=== PATIENT | female | born 1935 | race Caucasian/White ===

== ENCOUNTER 2016-11-10 16:04 | Inpatient (IN) | payer MEDICARE, OTHER ==
[~2016-11-10 16:04] MED LIST: Dextrose 50% Abboject 50 ML SYRINGE ONE; Sodium Chloride 0.9% 1,000 ML BAG ONE
[2016-11-10 17:00] LABS: Blood, Urine Trace (Negative); Glucose, Urine (Dipstick) Negative (Negative); Leukocyte Negative (Negative); Nitrite Negative (Negative); Protein, Urine (Dipstick) 100 mg/dL (Neg-Trace); Specific Gravity, Urine 1.025 (1.005-1.030); Urobilinogen 0.2 mg/dL (0.2-1.0)
[2016-11-10 17:04] LABS: Bacteria/HPF 4+ HPF (None Seen); Bilirubin Negative (Negative); Clarity Hazy (Clear); Icto Negative (Negative); RBC/HPF 0-3 HPF (0-3); Squamous Epithelial 0-3 HPF (0-3); WBC/HPF 0-3 HPF (0-3)
[2016-11-10 17:34] LABS: INR-International Normal Ratio 1.2; Prothrombin Time 15.4 SEC (12.0-14.7)
[2016-11-10 17:46] LABS: ALT (SGPT) 12 U/L (0-55); AST (SGOT) 17 U/L (5-34); Albumin 2.3 g/dL (3.4-4.8); Alkaline Phosphatase 87 U/L (40-150); Anion Gap 16 mmol/L (10-20); BUN (Urea Nitrogen) 18 mg/dL (9.8-20.1); Bilirubin, Total 0.4 mg/dL (0.2-1.2); CK (CPK) 28 U/L (29-168); CKMB 2.2 ng/mL (0-6.6); CRP (Inflammatory) 18.64 mg/dL (= or < 0.5); Calc. Creatinine Clearance 0 mL/min (70-130); Calcium 9.1 mg/dL (7.8-10.44); Carbon Dioxide 26 mmol/L (23-31); Chloride 98 mmol/L (98-107); Estimated GFR-MDRD 69; Glucose 196 mg/dL (83-110); Potassium 3.8 mmol/L (3.5-5.1); Protein, Total 6.3 g/dL (5.8-8.1); Sodium 136 mmol/L (136-145); Troponin I 0.025 ng/mL (< 0.028)
[2016-11-10] MEDS ORDERED: Ketorolac Tromethamine 30 MG/ML VIAL ONE (17:51)
[2016-11-10] MEDS ORDERED: Ondansetron HCl/PF 4 MG/2 ML Vial ONE (17:51)
[2016-11-10 18:21] LABS: Hemoglobin 9.6 g/dL (12.0-16.0); Mean Corpuscular HGB CONC 31.3 g/dL (32.0-36.0); Mean Corpuscular Hemoglobin 25.7 pg (27.0-31.0); Mean Corpuscular Volume 82.1 fl (81.0-99.0); Mean Platelet Volume 7.1 fL (7.4-10.4); Platelet Count 290 thou/uL (130-400); RBC Distribution Width 17.7 % (11.5-14.5); Red Blood Cell (RBC) Count 3.75 mill/uL (4.20-5.40); White Blood Cell (WBC) Count 9.4 thou/uL (4.8-10.8)
[2016-11-10 18:22] LABS: Anisocytosis SLIGHT = 6-15 cells (100X) (0-5/hpf); Band 10 % (5-11); Eosinophils 1 % (0-10); Lymphocytes 15 % (21-51); MDiff Complete? YES; Monocytes 3 % (0-10); Neutrophil 71 % (42-75); PLT Morphology Comment Appears Adequate; Poikilocytosis SLIGHT = 6-15 cells (100X) (0-5/hpf); Toxic Granulation SLIGHT
--- NOTE | 2016-11-10 18:29 | RAD ---
FRONTAL RADIOGRAPH CHEST 11/10/2016 HISTORY: Weakness. COMPARISON: 08/18/2015 FINDINGS: There is a persistent area of abnormal increased linear density within the medial right upper lobe, evidence of probable medial right apical scar. No pneumothorax SI evident. There are diffuse increased linear interstitial densities seen throughout both lungs as well, most p rominent within the lung bases. There are hazy areas of bibasilar increased density, left greater t hdez right, new when compared to a 08/18/2015. IMPRESSION 1. Diffuse chronic interstitial prominence and stable right upper lobe opacity, suggesting scar. 2. New patchy areas of bibasilar increased density, left greater than right. Findings are suspicio us for bibasilar infectious pneumonitis or aspiration. Asymmetric edema is less likely. Recommend short-term follow-up imaging, following treatment, to document resolution and, thus, exclude an unde rlying lung lesion/nodule. POS: MI
[2016-11-10 21:57] VITALS: BMI 11.9
[2016-11-10] MEDS ORDERED: Acetaminophen 325 MG TAB PO PRN (22:14)
[2016-11-10] MEDS ORDERED: HYDROcodone/Acetaminophen 10/325 mg Tablet PO PRN ×2 (22:14)
[2016-11-10] MEDS ORDERED: Bisacodyl 5 MG TAB PO PRN (22:14)
[2016-11-10] MEDS ORDERED: Ondansetron HCl/PF 4 MG/2 ML Vial SLOW IVP PRN (22:14)
[2016-11-10] MEDS ORDERED: Bisacodyl 10 MG SUPP PR PRN (22:14)
--- NOTE | 2016-11-10 22:23 | ERRECORD ---
[facility] EMERGENCY RECORD HPI WEAK-DIZZY (17:53 LLDO) CHIEF COMPLAINT: Patient presents for evaluation of weakness, Patient presents for evaluation of mental status changes, Patient presents for evaluation of brought in by ems from home. being seen by hospice and home health nurse. pt extremely weak and dehydrated. has an extraordinarily dirty feeding tube. has multiple stage 3 and 4 decubiti (dressings are dark brown to black). HISTORIAN: History provided by patient, History provided by patient's family, Additional history obtained from EMS. LOCATION: Symptoms are generalized. QUALITY: Patient is, oriented to person, responsive to verbal stimuli, Hyndman coma score, Eye opening: (4) - Spontaneous, Verbal: (4) - Confused/disoriented, Motor: (5) - Localizes Pain, GCS Total: 13, Pain is dull in nature, described as aching. SEVERITY: Maximum severity of symptoms moderate, Currently symptoms are moderate. TIME COURSE: Gradual onset of symptoms, Symptoms are worsening, are constant. ASSOCIATED WITH: No associated symptoms, Denies any other complaints, ONLY ABOVE. EXACERBATED BY: Patient's condition exacerbated by nothing. RELIEVED BY: Patient's condition relieved by nothing, Patient's condition relieved by nothing because patient has not tried anything for relief. ROS CONSTITUTIONAL: Historian reports fatigue, reports lethargy, reports malaise, reports weakness. (17:59 LLDO) EYES: Negative eye review of systems, Historian denies eye pain, denies eye redness, denies eye discharge. (18:13 LLDO) ENT: SEE HPI...DRY MOUTH. (17:59 LLDO) CARDIOVASCULAR: Negative cardiovascular review of systems, Historian denies chest pain, no radiation, Historian denies diaphoresis, denies syncope. (18:13 LLDO) RESPIRATORY: Negative respiratory review of systems, Historian denies cough, denies shortness of breath, denies sputum. (18:13 LLDO) GI: dirty feeding tube. (17:59 LLDO) GENITOURINARY FEMALE: Negative genitourinary review of systems, Historian denies dysuria, denies frequency, denies urgency. (18:13 LLDO) MUSCULOSKELETAL: Historian reports arthralgias, reports back pain, reports joint stiffness, reports myalgias. (17:59 LLDO) SKIN: Negative skin review of systems, Historian denies cellulitis, denies rash, denies skin changes, denies skin lesions. (18:13 LLDO) NEUROLOGIC: Negative neurologic review of systems, Historian denies confusion, denies dizziness, denies focal weakness, denies &a-1R&a+25V*p+0X*d8000J*c202B*c15G*c2P*p-0X&a-25V&a+1R Name: Deana Ann : 1935 F81 MedRec: [id number] AcctNum: [id number] Prepared: [facility] Nov 13, 2016 06:19 by Interface Page 1 of 5 pMD [facility] EMERGENCY RECORD mental status changes. (18:13 LLDO) HEMO/LYMPHATIC: Normal hematologic/lymphatic system review, Historian denies abnormal blood clotting, denies gum bleeding, denies petechiae. (18:13 LLDO) ALLERGIC/IMMUNOLOGIC: Normal allergy/immunologic system review, Historian denies eczema, denies environmental allergies, denies food allergies. (18:13 LLDO) PSYCHIATRIC: Negative psychiatric review of systems, Historian denies alcohol abuse, denies anxiety, denies depression, denies drug abuse, denies hallucinations. (18:13 LLDO) NOTES: All systems reviewed, negative except as described above. (17:59 LLDO) PAST MEDICAL HISTORY MEDICAL HISTORY: Notes: VERIFIED WITH EMS 11-10-16, Oral cancer, hypothyroid, dementia, GERD, CAD, HTN. Notes: UNDER CARE AT [facility]. (16:23 JPER) FEMALE SURGICAL HISTORY: Patient's surgical history not available at time of evaluation, Patient has no surgical history. (16:23 JPER) PSYCHIATRIC HISTORY: Psychiatric history includes, anxiety. (16:23 JPER) SOCIAL HISTORY: Patient denies alcohol use, Patient denies drug use, Patient has no smoking history, Lives at home, with family, LIVES WITH HER SISTER WHO CAN WATCH HER AND HELP HER FOR NEXT COUPLE OF DAYS. (16:23 JPER) NOTES: Nursing records reviewed, Agree with nursing records, Medication list reviewed. (18:13 LLDO) KNOWN ALLERGIES Flagyl metronidazole (Unconfirmed) CURRENT MEDICATIONS (16:24 JPER) ALPRAZolam: TABLET : Strength - 0.25 mg : ORAL Patient Dose: .5 mg Oral 3 times a day. Coreg: TABLET : Strength - 6.25 mg : ORAL Patient Dose: 12.5 mg Oral once a day. levothyroxine: TABLET : Strength - 25 mcg : ORAL Patient Dose: 1 tab(s) Oral once a day (in the morning). hydrocortisone: TABLET : Strength - 10 mg : ORAL Patient Dose: 1.5 tab(s) Oral 2 times a day.PM DOSE 0.5 TAB. HYDROcodone-acetaminophen: TABLET : Strength - 10 mg-325 mg : ORAL Patient Dose: 1 tab(s) Oral As Needed.Q 6 HR PAIN. &a-1R&a+25V*p+0X*[id number]*c202B*c15G*c2P*p-0X&a-25V&a+1R Name: Deana Ann : 1935 F81 MedRec: [id number] AcctNum: [id number] Prepared: [facility] Nov 13, 2016 06:19 by Interface Page 2 of 5 pMD [facility] EMERGENCY RECORD QUEtiapine: TABLET : Strength - 25 mg : ORAL Patient Dose: 2 tab(s) Oral once a day (at bedtime). pantoprazole: TABLET, DELAYED RELEASE (ENTERIC COATED) : Strength - 40 mg : ORAL Patient Dose: 1 mg Oral once a day (in the morning). VITAL SIGNS VITAL SIGNS: BP: 147/42, Pulse: 94, Resp: 20, O2 sat: 97 on 2L Oxygen, Time: 11/10/2016 16:22. (16:22 JPER) BP: 139/64, Pulse: 97, Resp: 21, Temp: 97.7 (Tympanic), O2 sat: 97 on 2L Oxygen, Time: 11/10/2016 16:30. (16:30 JPER) BP: 133/65, Pulse: 91, Resp: 15, Temp: 97.7 (Tympanic), O2 sat: 98 on Room Air, Time: 11/10/2016 17:00. (17:00 JPER) BP: 124/53, Pulse: 85, Resp: 14, O2 sat: 100 on 2L Oxygen, Time: 11/10/2016 17:30. (17:30 JPER) BP: 134/50, Pulse: 80, Resp: 14, Temp: 97.7 (Tympanic), O2 sat: 100 on 2L Oxygen, Time: 11/10/2016 18:00. (18:00 JPER) BP: 108/55, Pulse: 78, Resp: 13, O2 sat: 100 on 2L Oxygen, Time: 11/10/2016 18:27. (18:27 JPER) BP: 102/49, Pulse: 78, Resp: 16, O2 sat: 100 on 2L Oxygen, Time: 11/10/2016 20:25. (20:25 LPOL) PHYSICAL EXAM CONSTITUTIONAL: Vital signs reviewed, Patient afebrile, Pulse normal, Blood pressure normal, Respiratory rate normal, Patient appears, uncomfortable, Patient appears in pain, Patient alert and oriented to person, place and time. (18:02 LLDO) cachectic. disoriented. (18:10 LLDO) HEAD: Head exam included findings of head atraumatic, normocephalic. (18:10 LLDO) EYES: Eye exam normal, Eye exam included findings of eyelids normal to inspection, Pupils equally round and reactive to light, Extraocular muscles intact. (18:13 LLDO) ENT: Pharynx, Uvula exam normal, Mouth exam included findings of, mucous membranes dry, mucous membranes cracked, mucous membranes tacky, Sinus exam included findings of frontal sinuses normal, maxillary sinuses normal. (18:02 LLDO) NECK: Neck exam included findings of normal range of motion, Trachea midline, Thyroid, no meningeal signs, no cervical adenopathy. (18:02 LLDO) RESPIRATORY CHEST: Respiratory exam included findings of no respiratory distress. (18:02 LLDO) Respiratory exam included findings of no respiratory distress, Rales present, Breath sounds diminished, Chest exam included findings of chest movement symmetrical, Chest expansion equal, RALES MOD AND DIFFUSE. (18:10 LLDO) CARDIOVASCULAR: Cardiovascular assessment normal, Cardiovascular &a-1R&a+25V*p+0X*n7365S*c202B*c15G*c2P*p-0X&a-25V&a+1R Name: Deana Ann : 1935 F81 MedRec: [id number] AcctNum: [id number] Prepared: Shira Nov 13, 2016 06:19 by Interface Page 3 of 5 pMD [facility] EMERGENCY RECORD exam included findings of heart rate regular rate and rhythm, Heart sounds normal. (18:13 LLDO) ABDOMEN FEMALE: Abdominal exam normal, Abdominal exam included findings of abdomen nontender, Bowel sounds normal, no peritoneal signs. (18:13 LLDO) BACK: Back exam normal, Back exam included findings of normal inspection, range of motion normal. (18:13 LLDO) UPPER EXTREMITY: Upper extremity exam normal, Upper extremity exam included findings of inspection normal, Range of motion normal. (18:13 LLDO) LOWER EXTREMITY: Lower extremity exam normal, Lower extremity exam included findings of inspection normal, Range of motion normal. (18:13 LLDO) NEURO: Latanya coma scale, Eye opening: (4) - Spontaneous, Verbal: (4) - Confused/disoriented, Motor: (5) - Localizes Pain, GCS Total: 13, Neuro exam findings include patient oriented to, person, Speech, slurred, Gait abnormal, unable to ambulate, Memory abnormal, Cranial nerves intact, Deep tendon reflexes normal, no focal motor deficits, no focal sensory deficits, no cerebellar deficits, no nystagmus. (18:10 LLDO) SKIN: Skin exam included findings of skin warm, dry, and normal in color, multiple decubiti. (18:10 LLDO) PSYCHIATRIC: Psychiatric exam normal, Psychiatric exam included findings of patient oriented to person place and time, Normal affect. (18:13 LLDO) MEDICATION ADMINISTRATION SUMMARY Drug Name: Zofran intravenous, Dose Ordered: 4 mg, Route: IV Push, Status: Given, Time: 17:51 11/10/2016, Drug Name: Toradol intravenous, Dose Ordered: 15 mg, Route: IV Push, Status: Given, Time: 17:50 11/10/2016, Drug Name: *sodium chloride 0.9 % intravenous, Dose Ordered: 1 L, Route: IV Fluid Infusion, Status: Given, Time: 17:48 11/10/2016, Drug Name: *dextrose 50 % in water (D50W), Dose Ordered: 1 amp(s), Route: IV Push, Status: Given, Time: 16:30 11/10/2016, *Additional information available in notes, Detailed record available in Medication Service section. DOCTOR NOTES (18:16 LLDO) TEXT: talked to dr. wiggins, pcp, who will admit here for palliation. sister (caregiver) agrees. PROBLEM LIST No recorded problems DIAGNOSIS (20:57 LLDO) FINAL: PRIMARY: MUSCLE WEAKNESS GENERALIZED, &a-1R&a+25V*p+0X*j2418P*c202B*c15G*c2P*p-0X&a-25V&a+1R Name: Deana Ann : 1935 F81 MedRec: [id number] AcctNum: [id number] Prepared: ThuNov 13, 2016 06:19 by Interface Page 4 of 5 pMD [facility] EMERGENCY RECORD ADDITIONAL: decubiti, multiple, DEHYDRATION. PRESCRIPTION No recorded prescriptions DISPOSITION PATIENT: Disposition Type: Admit, Disposition: [facility]. (20:57 LLDO) Patient left the department. (21:28 LPOL) Small: JPER=DAFNE Ziegler, [place] LLDO=MD Maddy, Iker LPOL=DAFNE Alcocer, Roula &a-1R&a+25V*p+0X*v0896X*c202B*c15G*c2P*p-0X&a-25V&a+1R Name: Deana Ann : 1935 F81 MedRec: [id number] AcctNum: [id number] Prepared: Shira Nov 13, 2016 06:19 by Interface Page 5 of 5 pMD MTDD
--- NOTE | 2016-11-10 22:29 | PICIS ---
[facility] EMERGENCY RECORD COMMUNICATIONS (20:00 ADEA) COMMUNICATIONS: Admissions department, Contacted to admit the patient, Med Surg room 417. TRIAGE (16:23 JPER) PATIENT: NAME: Deana Ann, AGE: 81, GENDER: female, : Thu1935, TIME OF GREET: ThuNov 10, 2016 16:05, PREFERRED LANGUAGE: Chinese, RACE: WHITE, ETHNICITY: Not or , FALL RISK: YES, ECODE BILLING MAP: [facility], SSN: [id number], Zip Code: [address], KG WEIGHT: 38.56 (est.), PHONE: , , , PERSON ID: [id number], PCP: MD Lofton Grover. (16:23 JPER) COMPLAINT: WEAKNESS. (16:23 JPER) ADMISSION: URGENCY: 3 Urgent, ADMISSION SOURCE: Home, TRANSPORT: AMBULANCE - [facility], BED: ED -02. (16:23 JPER) ASSESSMENT: Assessment: WEAKNESS / DECREASED ORAL INTAKE. (16:23 JPER) SIRS SCORING: Heart Rate 55-109 (0), Temp range 96.8-101.1 (0), respiratory rate 25-34 (1), Total SIRS Score 1. (16:23 JPER) TRIAGE SCREENING: Patient denies suicidal ideation, Patient denies presence of domestic violence. (16:23 JPER) TREATMENTS IN PROGRESS: Saline Lock, Site: [facility], Gauge: 20. (16:23 JPER) PROVIDERS: TRIAGE NURSE: [place] Ziegler RN. (16:23 JPER) VITAL SIGNS: BP 147/42, Pulse 94, Resp 20, O2 Sat 97, on 2L Oxygen, Time 11/10/2016 16:22. (16:22 JPER) PREVIOUS VISIT ALLERGIES: Flagyl. (16:23 JPER) KNOWN ALLERGIES Flagyl metronidazole (Unconfirmed) CURRENT MEDICATIONS (16:24 JPER) ALPRAZolam: TABLET : Strength - 0.25 mg : ORAL Patient Dose: .5 mg Oral 3 times a day. Coreg: TABLET : Strength - 6.25 mg : ORAL Patient Dose: 12.5 mg Oral once a day. levothyroxine: TABLET : Strength - 25 mcg : ORAL Patient Dose: 1 tab(s) Oral once a day (in the morning). hydrocortisone: TABLET : Strength - 10 mg : ORAL Patient Dose: 1.5 tab(s) Oral 2 times a day.PM DOSE 0.5 TAB. HYDROcodone-acetaminophen: TABLET : Strength - 10 mg-325 mg : ORAL &a-1R&a+25V*p+0X*h6421N*c202B*c15G*c2P*p-0X&a-25V&a+1R Name: Deana Ann : 1935 F81 MedRec: [id number] AcctNum: [id number] Prepared: [facility] Nov 13, 2016 06:24 by Interface Page 1 of 12 pMD [facility] EMERGENCY RECORD Patient Dose: 1 tab(s) Oral As Needed.Q 6 HR PAIN. QUEtiapine: TABLET : Strength - 25 mg : ORAL Patient Dose: 2 tab(s) Oral once a day (at bedtime). pantoprazole: TABLET, DELAYED RELEASE (ENTERIC COATED) : Strength - 40 mg : ORAL Patient Dose: 1 mg Oral once a day (in the morning). VITAL SIGNS VITAL SIGNS: BP: 147/42, Pulse: 94, Resp: 20, O2 sat: 97 on 2L Oxygen, Time: 11/10/2016 16:22. (16:22 JPER) BP: 139/64, Pulse: 97, Resp: 21, Temp: 97.7 (Tympanic), O2 sat: 97 on 2L Oxygen, Time: 11/10/2016 16:30. (16:30 JPER) BP: 133/65, Pulse: 91, Resp: 15, Temp: 97.7 (Tympanic), O2 sat: 98 on Room Air, Time: 11/10/2016 17:00. (17:00 JPER) BP: 124/53, Pulse: 85, Resp: 14, O2 sat: 100 on 2L Oxygen, Time: 11/10/2016 17:30. (17:30 JPER) BP: 134/50, Pulse: 80, Resp: 14, Temp: 97.7 (Tympanic), O2 sat: 100 on 2L Oxygen, Time: 11/10/2016 18:00. (18:00 JPER) BP: 108/55, Pulse: 78, Resp: 13, O2 sat: 100 on 2L Oxygen, Time: 11/10/2016 18:27. (18:27 JPER) BP: 102/49, Pulse: 78, Resp: 16, O2 sat: 100 on 2L Oxygen, Time: 11/10/2016 20:25. (20:25 LPOL) NURSING ASSESSMENT: HEAD-TO-TOE (16:30 JPER) CONSTITUTIONAL: Patient arrives, via [facility], Unsteady gait, Lift to cart, History obtained from, [facility], Patient appears comfortable, Patient cooperative, Patient, responsive to verbal stimuli, Patient is, oriented to person, Skin warm, Skin dry, Skin, pale in color, Mucous membranes, PT HAS ORAL CANCER AND ORAL CAVITY IS REDDENED, CRACKED IN PLACES AND BLEEDING, Mucous membranes, dry, Patient, poorly groomed, with poor personal hygiene, PT IS DIRTY AND UNKEMPT; HAS DIRT TO COLLARBONE AREA; FINGERNAILS ARE BLACK WITH DEBRIS; EYES HAVE MATTER AND ARE CRUSTED SOMEWHAT; FEEDING TUBE HAS EXUDATE AROUND INSERTION SITE AND THE TUBE ITSELF IS BLACK, Patient complains of WEAKNESS. PAIN: PT DENIES PAIN. 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, Stage IV, length (cm) 4-5, width (cm) 2-3, draining yellow fluid, LEFT HIP, Inspection findings include pressure ulcer to the sacrum, Stage III, length (cm) 1.5, width (cm) 1.5, draining yellow fluid, Inspection &a-1R&a+25V*p+0X*t8028F*c202B*c15G*c2P*p-0X&a-25V&a+1R Name: Deana Ann : 1935 F81 MedRec: [id number] AcctNum: [id number] Prepared: Shira Nov 13, 2016 06:24 by Interface Page 2 of 12 pMD [facility] EMERGENCY RECORD findings include pressure ulcer, to RIGHT HIP, Stage IV, length (cm) 1.5, width (cm) 1.5, draining green fluid, PT HAS #2 SIMILAR WOUNDS TO RIGHT HIP; SUSPECT WOUND HAS TUNNELED. NEURO: Able to close eyes, Speech, slurred, DUE TO ORAL CA, GCS:, Eye opening: (4) - Spontaneous, Verbal: (4) - Confused/disoriented, Motor: (6) - Obeys commands/Spontaneous, Hand grasps equal, Foot press equal, Associated with weakness. EYES: Notes: SOME ACCUMULATION OF MATTERING NOTED. ENT: Able to swallow. NECK: Neck assessment findings include trachea midline. BACK: Right radial pulse +3(easily palpated, considered normal), Left radial pulse +3(easily palpated, considered normal), Notes: PT HAS NOTED CURVATURE OF THE SPINE. RESPIRATORY/CHEST: Breath sounds clear, Respiratory assessment findings include respiratory effort easy, Respirations regular, Conversing normally, Neck and chest exam findings include trachea midline, Chest expansion equal, Chest movement symmetrical, Notes: PLACED ON O2 AT 2L/MIN NC FOR ROOM AIR SATS OF 90%. CARDIOVASCULAR: Cardiovascular assessment findings include heart rate normal, Left radial pulse +3(easily palpated, considered normal), Right radial pulse +3(easily palpated, considered normal). ABDOMEN: Abdomen, firm. GENITOURINARY FEMALE: Female genitourinary assessment findings include external genitalia normal. LEFT UPPER EXTREMITY: Left upper extremity assessment findings include capillary refill greater than 2 seconds, Skin color normal to hand, Skin temperature to hand warm, Distal sensation intact, Muscle tone normal. RIGHT UPPER EXTREMITY: Right upper extremity assessment findings include capillary refill greater than 2 seconds, Skin color normal to hand, Skin temperature to hand warm, Distal sensation intact, Muscle tone normal. LEFT LOWER EXTREMITY: Left lower extremity assessment findings include capillary refill greater than 2 seconds, Skin color normal, Skin temperature warm, Distal sensation intact, Muscle tone normal. RIGHT LOWER EXTREMITY: Right lower extremity assessment findings include capillary refill greater than 2 seconds, Skin color normal, Skin temperature warm, Distal sensation intact, Muscle tone normal. PSYCH/SOCIAL: Psychiatric/social assessment findings include affect, PT RESPONDS FAIRLY WELL AND APPROPRIATELY IN CONVERSATION; POOR EYE CONTACT IF SHE DOES NOT SEE WELL; PT IS SOMEWHAT HARD OF HEARING AND HAS SOME SLURRED SPEECH DUE TO THE ORAL CANCER BUT IS INTELLIGIBLE AND ESSENTIALLY APPROPRIATE. NOTES: Emotional support needed and given, Patient tolerated procedure with difficulty. SAFETY: Side rails up, Cart/Stretcher in lowest position, Call &a-1R&a+25V*p+0X*e1835F*c202B*c15G*c2P*p-0X&a-25V&a+1R Name: Deana Ann : 1935 F81 MedRec: [id number] AcctNum: [id number] Prepared: Shira Nov 13, 2016 06:24 by Interface Page 3 of 12 pMD [facility] EMERGENCY RECORD light within reach, Hospital ID band on. NURSING PROCEDURE: ADMISSION (20:08 LPOL) ADMISSION: Patient admitted to a medical-surgical unit, Report called to, Janell, Provided opportunity to answer questions, Report called at 2004, Patient Admited at. [facility], Acuity level urgent, Transported via cart/stretcher, Accompanied by registered nurse, Transported with saline lock, Summary of Care printed. BELONGINGS: Belongings and valuables with patient upon arrival to the Emergency Department include:, Belongings remain with patient, Valuables remain with patient. SAFETY: Side rails up, Cart/Stretcher in lowest position, Family at bedside, Hospital ID band on. NURSING PROCEDURE: BEDSIDE TESTING (16:30 JPER) GLUCOSE: Glucose testing indicated for WEAKNESS, Capillary blood sample, Result (mg/dl) 61, Machine number ED. FOLLOW-UP: After procedure, results given to Dr. ANGUIANO, Notes: ORDERS GIVEN FOR 1 AMP D50 IVP. NURSING PROCEDURE: EKG CHART (17:20 JPER) PATIENT IDENTIFIER: Patient's identity verified by patient stating name, Patient's identity verified by hospital ID bracelet. EK lead EKG performed on the left chest, done by ERIK GOLDSMITH. FOLLOW-UP: After procedure, EKG for interpretation given to Dr. ANGUIANO. NOTES: Emotional support needed and given. NURSING PROCEDURE: INTAKE AND OUTPUT (19:32 LPOL) INTAKE AND OUTPUT: Total Intake (ml): 0ml, Urine output(ml): 240, Total Output (ml): 240ml, Grand Total: Output is greater than intake by 240mls. NURSING PROCEDURE: NURSE NOTES NURSES NOTES: Notes: CONSENT TO PHOTOGRAPH OBTAINED FROM PT WITH ERMD AT BEDSIDE. (17:40 JPER) Notes: PT TO BE ADMITTED TO THE SERVICE OF DR LOFTON. (18:29 JPER) Shift change report given, to lpfroylan rn, Provided opportunity to answer questions. (19:10 JPER) NURSING PROCEDURE: URINE COLLECTION (16:45 JPER) PATIENT IDENTIFIER: Patient's identity verified by patient stating name. URINE COLLECTION FEMALE: Simple de jesus inserted, using a 16 fr pre-connected catheter, in one attempt, urine karl in color, Specimen labeled in the presence of the patient and sent to lab, Specimen obtained for culture labeled in the presence of the patient and sent to lab. NOTES: Emotional support needed and given, Patient tolerated &a-1R&a+25V*p+0X*a6394T*c202B*c15G*c2P*p-0X&a-25V&a+1R Name: Deana Ann : 1935 F81 MedRec: [id number] AcctNum: [id number] Prepared: [facility] Nov 13, 2016 06:24 by Interface Page 4 of 12 pMD [facility] EMERGENCY RECORD procedure well. ORDER DETAILS Order Name: B type Natriuretic Peptide, Status: Active, Time: 16:37 11/10/2016, User: VENTURA, - Ordered for: MD Anguiano Lloyd, - Entered by: MD Anguiano Lloyd - ThuNov 10, 2016 16:37, - Quantity: 1, Order Name: DIRECTOR OF CASINO ED, Status: Done, Time: 16:42 11/10/2016, User: RADHA, - Ordered for: MD Anguiano Lloyd, - Entered by: MD Anguiano Lloyd - ThuNov 10, 2016 16:38, - Quantity: 1, Order Name: Cardiac Profile w/CKMB & Troponin - I, Status: Active, Time: 16:38 11/10/2016, User: VENTURA, - Ordered for: MD Anguiano Lloyd, - Entered by: MD Anguiano Lloyd - ThuNov 10, 2016 16:38, - Quantity: 1, Order Name: CBC with Differential, Status: Active, Time: 16:37 11/10/2016, User: VENTURA, - Ordered for: MD Anguiano Lloyd, - Entered by: MD Anguiano Lloyd - ThuNov 10, 2016 16:37, - Quantity: 1, Order Name: CK (CPK), Status: Active, Time: 16:38 11/10/2016, User: VENTURA, - Ordered for: MD Anguiano Lloyd, - Entered by: MD Anguiano Lloyd - [facility] Nov 10, 2016 16:38, - Quantity: 1, Order Name: Comprehensive Metabolic Panel, Status: Active, Time: 16:37 11/10/2016, User: VENTURA, - Ordered for: MD Anguiano Lloyd, - Entered by: MD Anguiano Lloyd - [facility] Nov 10, 2016 16:37, - Quantity: 1, Order Name: CRP (Inflamatory), Status: Active, Time: 16:37 11/10/2016, User: VENTURA, - Ordered for: MD Anguiano Lloyd, - Entered by: MD Anguiano Lloyd - [facility] Nov 10, 2016 16:37, - Quantity: 1, Order Name: Culture & GS, Bacterial/Wound, Status: Active, Time: 17:05 11/10/2016, User: RADHA, - Ordered for: MD Anguiano Lloyd, - Entered by: DAFNE Ziegler, [place] - ThuNov 10, 2016 17:05, - Quantity: 1, Order Name: Culture & GS, Bacterial/Wound, Status: Active, Time: 16:39 11/10/2016, User: VENTURA, - Ordered for: MD Anguiano Lloyd, - Entered by: MD Anguiano Lloyd - [facility] Nov 10, 2016 16:39, - Quantity: 1, Order Name: Culture & GS, Bacterial/Wound, Status: Active, Time: &a-1R&a+25V*p+0X*r6481U*c202B*c15G*c2P*p-0X&a-25V&a+1R Name: Deana Ann : 1935 F81 MedRec: [id number] AcctNum: [id number] Prepared: Shira Nov 13, 2016 06:24 by Interface Page 5 of 12 D [facility] EMERGENCY RECORD 17:06 11/10/2016, User: RADHA, - Ordered for: MD Anguiano Lloyd, - Entered by: DAFNE Ziegler, ThuNov 10, 2016 17:06, - Quantity: 1, Order Name: Culture, Blood, Status: Active, Time: 16:37 11/10/2016, User: LLDO, - Ordered for: MD Anguiano Lloyd, - Entered by: MD Anguiano Lloyd - [facility] Nov 10, 2016 16:37, - Quantity: 1, Order Name: Culture, Urine, Status: Active, Time: 16:37 11/10/2016, User: LLDO, - Ordered for: MD Anguiano Lloyd, - Entered by: MD Anguiano Lloyd - [facility] Nov 10, 2016 16:37, - Quantity: 1, Order Name: EKG 12 Lead in Emergency Room, Status: Active, Time: 16:38 11/10/2016, User: LLDO, - Ordered for: MD Anguiano Lloyd, - Entered by: MD Anguiano Lloyd - [facility] Nov 10, 2016 16:38, - Quantity: 1, Order Name: ERRT Oxygen Usage ER, Status: Active, Time: 16:38 11/10/2016, User: LLDO, - Ordered for: MD Anguiano Lloyd, - Entered by: MD Anguiano Lloyd - [facility] Nov 10, 2016 16:38, - Quantity: 1, Order Name: ERRT Pulse Oximeter ER, Status: Active, Time: 16:38 11/10/2016, User: LLDO, - Ordered for: MD Anguiano Lloyd, - Entered by: MD Anguiano Lloyd - [facility] Nov 10, 2016 16:38, - Quantity: 1, Order Name: DE JESUS CATHETER ED, Status: Done, Time: 16:42 11/10/2016, User: JPER, - Ordered for: MD Anguiano Lloyd, - Entered by: MD Anguiano Lloyd - [facility] Nov 10, 2016 16:39, - Quantity: 1, Order Name: Lactic Acid with repeat, Status: Active, Time: 16:37 11/10/2016, User: LLDO, - Ordered for: MD Anguiano Lloyd, - Entered by: MD Anguiano Lloyd - [facility] Nov 10, 2016 16:37, - Quantity: 1, Order Name: Protime with INR, Status: Active, Time: 16:38 11/10/2016, User: LLDO, - Ordered for: MD Anguiano Lloyd, - Entered by: MD Anguiano Lloyd - [facility] Nov 10, 2016 16:38, - Quantity: 1, Order Name: PTT, Status: Active, Time: 16:38 11/10/2016, User: VENTURA, - Ordered for: MD Anguiano Lloyd, - Entered by: MD Anguiano Lloyd - [facility] Nov 10, 2016 16:38, - Quantity: 1, Order Name: SALINE LOCK, Status: Done, Time: 16:43 11/10/2016, User: RADHA, &a-1R&a+25V*p+0X*n3050A*c202B*c15G*c2P*p-0X&a-25V&a+1R Name: Deana Ann : 1935 F81 MedRec: [id number] AcctNum: [id number] Prepared: [facility] Nov 13, 2016 06:24 by Interface Page 6 of 12 [facility] EMERGENCY RECORD - Ordered for: MD Anguiano Lloyd, - Entered by: MD Anguiano Lloyd - [facility] Nov 10, 2016 16:38, - Quantity: 1, Order Name: Urinalysis with Microscopic, Status: Active, Time: 16:37 11/10/2016, User: VENTURA, - Ordered for: MD Anguiano Lloyd, - Entered by: MD Anguiano Lloyd - [facility] Nov 10, 2016 16:37, - Quantity: 1, Order Name: XR Chest 1 View Portable, Status: Active, Time: 16:38 11/10/2016, User: VENTURA, - Ordered for: MD Anguiano Lloyd, - Entered by: MD Anguiano Lloyd - [facility] Nov 10, 2016 16:38, - Quantity: 1. MEDICATION ADMINISTRATION SUMMARY Drug Name: Zofran intravenous, Dose Ordered: 4 mg, Route: IV Push, Status: Given, Time: 17:51 11/10/2016, Drug Name: Toradol intravenous, Dose Ordered: 15 mg, Route: IV Push, Status: Given, Time: 17:50 11/10/2016, Drug Name: *sodium chloride 0.9 % intravenous, Dose Ordered: 1 L, Route: IV Fluid Infusion, Status: Given, Time: 17:48 11/10/2016, Drug Name: *dextrose 50 % in water (D50W), Dose Ordered: 1 amp(s), Route: IV Push, Status: Given, Time: 16:30 11/10/2016, *Additional information available in notes, Detailed record available in Medication Service section. MEDICATION SERVICE dextrose 50 % in water (D50W): Order: dextrose 50 % in water (D50W) (dextrose 50 % in water) - Dose: 1 amp(s) : IV Push Schedule: Now Notes: late entry for 11-10-16 @[address] [facility] [address] anguiano Ordered by: Iker Anguiano MD Entered by: [place] Ziegler RN zion Nov 11, 2016 07:34 Documented as given by: [place] iZegler RN [facility] Nov 10, 2016 16:30 Patient, Medication, Dose, Route and Time verified prior to administration. Verbal order read back and verified, Amount given: 1 amp, IV SITE #1 IVP, initial medication, Slowly, Catheter placement confirmed via flush prior to administration, IV site without signs or symptoms of infiltration during medication administration, No swelling during administration, No drainage during administration, IV flushed after administration, Correct patient, time, route, dose and medication confirmed prior to administration, Patient advised of actions and side-effects prior to administration, Allergies confirmed and medications reviewed prior to administration, Administered by erik goldsmith, Patient in position of comfort, Side rails up, Cart in lowest position, Family at bedside, late entry. sodium chloride 0.9 % intravenous: Order: sodium chloride 0.9 % intravenous (0.9 % sodium chloride) - Dose: 1 L : IV Fluid &a-1R&a+25V*p+0X*l6425N*c202B*c15G*c2P*p-0X&a-25V&a+1R Name: Deana Ann : 1935 F81 MedRec: [id number] AcctNum: [id number] Prepared: [facility] Nov 13, 2016 06:24 by Interface Page 7 of 12 pMD [facility] EMERGENCY RECORD Infusion Notes: (Bolus) after bolus, lock Ordered by: Iker Anguiano MD Entered by: Iker Anguiano MD ThuNov 10, 2016 17:47 Documented as given by: [place] Ziegler RN ThuNov 10, 2016 17:48 Patient, Medication, Dose, Route and Time verified prior to administration. Amount given: 1000ML, IV SITE #1 IV fluids established for hydration, IV SITE #1 into left forearm, IV SITE #1 1st bag hung, amount 1 Liter hung, IV SITE #1 bolus of 1000 ml established, IV SITE #1 Rate of bolus, 1000 ml/hr, via primary tubing, Catheter placement confirmed via flush prior to administration, IV site without signs or symptoms of infiltration during medication administration, No swelling during administration, No drainage during administration, IV flushed after administration, Correct patient, time, route, dose and medication confirmed prior to administration, Patient advised of actions and side-effects prior to administration, Allergies confirmed and medications reviewed prior to administration, Administered by ERIK GOLDSMITH, Patient in position of comfort, Side rails up, Cart in lowest position, Family at bedside. : Follow Up : _IV SITE #1:_, IV fluid infusion discontinued, on ThuNov 10, 2016 19:00, Total fluid hydration time IV site 1 1 hour, 15 minutes, ., Total amount infused: 1000ml. (19:09 JPREJI) Toradol intravenous: Order: Toradol intravenous (ketorolac tromethamine) - Dose: 15 mg : IV Push Schedule: Now Ordered by: Iker Anguiano MD Entered by: Iker Anguiano MD ThuNov 10, 2016 17:48 Documented as given by: [place] Ziegler RN ThuNov 10, 2016 17:50 Patient, Medication, Dose, Route and Time verified prior to administration. Amount given: 15MG, IV SITE #1 IVP, initial medication, Slowly, Catheter placement confirmed via flush prior to administration, IV site without signs or symptoms of infiltration during medication administration, No swelling during administration, No drainage during administration, IV flushed after administration, Correct patient, time, route, dose and medication confirmed prior to administration, Patient advised of actions and side-effects prior to administration, Allergies confirmed and medications reviewed prior to administration, Administered by ERIK GOLDSMITH. Zofran intravenous: Order: Zofran intravenous (ondansetron HCl) - Dose: 4 mg : IV Push Schedule: Now Ordered by: Iker Anguiano MD Entered by: Iker Anguiano MD ThuNov 10, 2016 17:48 Documented as given by: [place] Ziegler RN ThuNov 10, 2016 17:51 Patient, Medication, Dose, Route and Time verified prior to administration. Amount given: 4MG, IV SITE #1 IVP, subsequent different medication, Slowly, Catheter placement confirmed via flush prior to &a-1R&a+25V*p+0X*p8569G*c202B*c15G*c2P*p-0X&a-25V&a+1R Name: Deana Ann : 1935 F81 MedRec: [id number] AcctNum: [id number] Prepared: [facility] Nov 13, 2016 06:24 by Interface Page 8 of 12 pMD [facility] EMERGENCY RECORD administration, IV site without signs or symptoms of infiltration during medication administration, No swelling during administration, No drainage during administration, IV flushed after administration, Correct patient, time, route, dose and medication confirmed prior to administration, Patient advised of actions and side-effects prior to administration, Allergies confirmed and medications reviewed prior to administration, Administered by ERIK GOLDSMITH. HPI WEAK-DIZZY (17:53 LLDO) CHIEF COMPLAINT: Patient presents for evaluation of weakness, Patient presents for evaluation of mental status changes, Patient presents for evaluation of brought in by ems from home. being seen by hospice and home health nurse. pt extremely weak and dehydrated. has an extraordinarily dirty feeding tube. has multiple stage 3 and 4 decubiti (dressings are dark brown to black). HISTORIAN: History provided by patient, History provided by patient's family, Additional history obtained from EMS. LOCATION: Symptoms are generalized. QUALITY: Patient is, oriented to person, responsive to verbal stimuli, [place] coma score, Eye opening: (4) - Spontaneous, Verbal: (4) - Confused/disoriented, Motor: (5) - Localizes Pain, GCS Total: 13, Pain is dull in nature, described as aching. SEVERITY: Maximum severity of symptoms moderate, Currently symptoms are moderate. TIME COURSE: Gradual onset of symptoms, Symptoms are worsening, are constant. ASSOCIATED WITH: No associated symptoms, Denies any other complaints, ONLY ABOVE. EXACERBATED BY: Patient's condition exacerbated by nothing. RELIEVED BY: Patient's condition relieved by nothing, Patient's condition relieved by nothing because patient has not tried anything for relief. ROS CONSTITUTIONAL: Historian reports fatigue, reports lethargy, reports malaise, reports weakness. (17:59 LLDO) EYES: Negative eye review of systems, Historian denies eye pain, denies eye redness, denies eye discharge. (18:13 LLDO) ENT: SEE HPI...DRY MOUTH. (17:59 LLDO) CARDIOVASCULAR: Negative cardiovascular review of systems, Historian denies chest pain, no radiation, Historian denies diaphoresis, denies syncope. (18:13 LLDO) RESPIRATORY: Negative respiratory review of systems, Historian denies cough, denies shortness of breath, denies sputum. (18:13 LLDO) GI: dirty feeding tube. (17:59 LLDO) GENITOURINARY FEMALE: Negative genitourinary review of systems, Historian denies dysuria, denies frequency, denies urgency. (18:13 LLDO) &a-1R&a+25V*p+0X*w9069N*c202B*c15G*c2P*p-0X&a-25V&a+1R Name: Deana Ann : 1935 F81 MedRec: [id number] AcctNum: [id number] Prepared: Shira Nov 13, 2016 06:24 by Interface Page 9 of 12 pMD [facility] EMERGENCY RECORD MUSCULOSKELETAL: Historian reports arthralgias, reports back pain, reports joint stiffness, reports myalgias. (17:59 LLDO) SKIN: Negative skin review of systems, Historian denies cellulitis, denies rash, denies skin changes, denies skin lesions. (18:13 LLDO) NEUROLOGIC: Negative neurologic review of systems, Historian denies confusion, denies dizziness, denies focal weakness, denies mental status changes. (18:13 LLDO) HEMO/LYMPHATIC: Normal hematologic/lymphatic system review, Historian denies abnormal blood clotting, denies gum bleeding, denies petechiae. (18:13 LLDO) ALLERGIC/IMMUNOLOGIC: Normal allergy/immunologic system review, Historian denies eczema, denies environmental allergies, denies food allergies. (18:13 LLDO) PSYCHIATRIC: Negative psychiatric review of systems, Historian denies alcohol abuse, denies anxiety, denies depression, denies drug abuse, denies hallucinations. (18:13 LLDO) NOTES: All systems reviewed, negative except as described above. (17:59 LLDO) PAST MEDICAL HISTORY MEDICAL HISTORY: Notes: VERIFIED WITH EMS 11-10-16, Oral cancer, hypothyroid, dementia, GERD, CAD, HTN. Notes: UNDER CARE AT [facility] FOR CANCER. (16:23 JPER) FEMALE SURGICAL HISTORY: Patient's surgical history not available at time of evaluation, Patient has no surgical history. (16:23 JPER) PSYCHIATRIC HISTORY: Psychiatric history includes, anxiety. (16:23 JPER) SOCIAL HISTORY: Patient denies alcohol use, Patient denies drug use, Patient has no smoking history, Lives at home, with family, LIVES WITH HER SISTER WHO CAN WATCH HER AND HELP HER FOR NEXT COUPLE OF DAYS. (16:23 JPER) NOTES: Nursing records reviewed, Agree with nursing records, Medication list reviewed. (18:13 LLDO) PHYSICAL EXAM CONSTITUTIONAL: Vital signs reviewed, Patient afebrile, Pulse normal, Blood pressure normal, Respiratory rate normal, Patient appears, uncomfortable, Patient appears in pain, Patient alert and oriented to person, place and time. (18:02 LLDO) cachectic. disoriented. (18:10 LLDO) HEAD: Head exam included findings of head atraumatic, normocephalic. (18:10 LLDO) EYES: Eye exam normal, Eye exam included findings of eyelids normal to inspection, Pupils equally round and reactive to light, Extraocular muscles intact. (18:13 LLDO) ENT: Pharynx, Uvula exam normal, Mouth exam included &a-1R&a+25V*p+0X*[id number]*c202B*c15G*c2P*p-0X&a-25V&a+1R Name: Deana Ann : 1935 F81 MedRec: [id number] AcctNum: [id number] Prepared: Shira Nov 13, 2016 06:24 by Interface Page 10 of 12 pMD [facility] EMERGENCY RECORD findings of, mucous membranes dry, mucous membranes cracked, mucous membranes tacky, Sinus exam included findings of frontal sinuses normal, maxillary sinuses normal. (18:02 LLDO) NECK: Neck exam included findings of normal range of motion, Trachea midline, Thyroid, no meningeal signs, no cervical adenopathy. (18:02 LLDO) RESPIRATORY CHEST: Respiratory exam included findings of no respiratory distress. (18:02 LLDO) Respiratory exam included findings of no respiratory distress, Rales present, Breath sounds diminished, Chest exam included findings of chest movement symmetrical, Chest expansion equal, RALES MOD AND DIFFUSE. (18:10 LLDO) CARDIOVASCULAR: Cardiovascular assessment normal, Cardiovascular exam included findings of heart rate regular rate and rhythm, Heart sounds normal. (18:13 LLDO) ABDOMEN FEMALE: Abdominal exam normal, Abdominal exam included findings of abdomen nontender, Bowel sounds normal, no peritoneal signs. (18:13 LLDO) BACK: Back exam normal, Back exam included findings of normal inspection, range of motion normal. (18:13 LLDO) UPPER EXTREMITY: Upper extremity exam normal, Upper extremity exam included findings of inspection normal, Range of motion normal. (18:13 LLDO) LOWER EXTREMITY: Lower extremity exam normal, Lower extremity exam included findings of inspection normal, Range of motion normal. (18:13 LLDO) NEURO: [place] coma scale, Eye opening: (4) - Spontaneous, Verbal: (4) - Confused/disoriented, Motor: (5) - Localizes Pain, GCS Total: 13, Neuro exam findings include patient oriented to, person, Speech, slurred, Gait abnormal, unable to ambulate, Memory abnormal, Cranial nerves intact, Deep tendon reflexes normal, no focal motor deficits, no focal sensory deficits, no cerebellar deficits, no nystagmus. (18:10 LLDO) SKIN: Skin exam included findings of skin warm, dry, and normal in color, multiple decubiti. (18:10 LLDO) PSYCHIATRIC: Psychiatric exam normal, Psychiatric exam included findings of patient oriented to person place and time, Normal affect. (18:13 LLDO) EVENTS TRANSFER: Triage to Emergency Main ED -02. (ThuNov 10, 2016 16:23 JPER) Removed from Emergency Main ED -02. (21:28 LPOL) DOCTOR NOTES (18:16 LLDO) TEXT: talked to dr. lofton, pcp, who will admit here for palliation. sister (caregiver) agrees. &a-1R&a+25V*p+0X*[id number]*c202B*c15G*c2P*p-0X&a-25V&a+1R Name: Ann Deana R : 1935 F81 MedRec: [id number] AcctNum: [id number] Prepared: ThuNov 13, 2016 06:24 by Interface Page 11 of 12 pMD [facility] EMERGENCY RECORD PROBLEM LIST No recorded problems DIAGNOSIS (20:57 LLDO) FINAL: PRIMARY: MUSCLE WEAKNESS GENERALIZED, ADDITIONAL: decubiti, multiple, DEHYDRATION. DISPOSITION PATIENT: Disposition Type: Admit, Disposition: [facility]. (20:57 LLDO) Patient left the department. (21:28 LPOL) PRESCRIPTION No recorded prescriptions IMAGING CONSENT TO PHOTO: Image captured from scanner. (17:47 JPER) Page 2 added. Image captured from scanner. (17:47 JPER) AMBULANCE REPORT: Image captured from scanner. (19:11 JPER) VITAL SIGNS: Image captured from scanner. (20:10 LPOL) *SUPPLY CHARGE SHEET: Image captured from scanner. (20:11 LPOL) ADMISSION ORDERS: Image captured from scanner. (21:04 LPOL) Page 2 added. Image captured from scanner. (21:04 LPOL) *EKG: Image captured from scanner. (21:04 LPOL) ADMIN DIGITAL SIGNATURE: DAFNE Rodrigues, Fito. (20:35 ADEA) MD Anguiano Lloyd. (23:07 LLDO) MD Anguiano Lloyd. (ThuNov 13, 2016 06:12 LLDO) Small: ADEA=DAFNE Rodrigues Andrea JPER=DAFNE Ziegler Jana LLDO=MD Anguiano Lloyd LPOL=DAFNE Alcocer, Roula &a-1R&a+25V*p+0X*[id number]*c202B*c15G*c2P*p-0X&a-25V&a+1R Name: Deana Ann : 1935 F81 MedRec: [id number] AcctNum: [id number] Prepared: ThuNov 13, 2016 06:24 by Interface Page 12 of 12 pMD MTDD
[2016-11-10] MEDS ORDERED: Enoxaparin Sodium 40 MG/0.4 ML SYRINGE SC SCH (22:30)
[2016-11-10] MEDS: Sodium Chloride 0.9% 1,000 ML IV SCH (23:15)
[2016-11-11 05:25] LABS: ALT (SGPT) 12 U/L (0-55); AST (SGOT) 16 U/L (5-34); Albumin 2.2 g/dL (3.4-4.8); Alkaline Phosphatase 85 U/L (40-150); Anion Gap 13 mmol/L (10-20); BUN (Urea Nitrogen) 17 mg/dL (9.8-20.1); Bilirubin, Total 0.4 mg/dL (0.2-1.2); Calc. Creatinine Clearance 34 mL/min (70-130); Calcium 8.8 mg/dL (7.8-10.44); Carbon Dioxide 27 mmol/L (23-31); Chloride 103 mmol/L (98-107); Estimated GFR-MDRD 77; Globulin 3.9 g/dL (2.4-3.5); Glucose 67 mg/dL (83-110); Potassium 4.1 mmol/L (3.5-5.1); Protein, Total 6.1 g/dL (5.8-8.1); Sodium 139 mmol/L (136-145)
[2016-11-11 05:29] LABS: Hemoglobin 10.1 g/dL (12.0-16.0); Hypochromia SLIGHT = 6-15 cells (100X) (0-5/hpf); Lymphocytes 7 % (21-51); MDiff Complete? YES; Mean Corpuscular Hemoglobin 26.2 pg (27.0-31.0); Mean Platelet Volume 6.9 fL (7.4-10.4); Monocytes 5 % (0-10); Neutrophil 88 % (42-75); PLT Morphology Comment Appears Adequate; Platelet Count 266 thou/uL (130-400); RBC Distribution Width 17.9 % (11.5-14.5); Red Blood Cell (RBC) Count 3.86 mill/uL (4.20-5.40); White Blood Cell (WBC) Count 6.4 thou/uL (4.8-10.8)
[2016-11-11] MEDS: Sodium Chloride 0.9% 1,000 ML IV SCH (05:36)
[2016-11-11] MEDS ORDERED: Morphine Sulfate 2 MG/ML SYRINGE SLOW IVP PRN ×2 (08:29→15:47)
[2016-11-11] MEDS ORDERED: FLU VACC TS2016-17(65YR +) 0.5 ML SYRINGE IM ONE (09:00)
[2016-11-11] MEDS: cefTRIAXone\\ROCEPHIN 1 GM in Sodium Chloride 0.9% 100 ML IVPB SCH (09:29)
[2016-11-11] MEDS: Pantoprazole 40 MG VIAL IVP SCH (09:30)
[2016-11-11] MEDS: Azithromycin 500 MG in Sodium Chloride 0.9% 250 ML 250 ML IVPB SCH (09:36)
[2016-11-11] MEDS: Dextrose 5 % And 0.9 % NaCl 1,000 ML IV SCH ×2 (14:46→22:47)
--- NOTE | 2016-11-11 18:38 | HP ---
Admitted to myself on the evening of 11/10/2016. CHIEF COMPLAINT: Alteration in mental status. HISTORY OF PRESENT ILLNESS: The patient is an 81-year-old white female who lives at her home with h er 84-year-old sister. Her sister assists the patient with her ADLs. The patient has a history of cancer of the tongue that was originally treated with radiation therapy in 2013. She required place ment of a feeding tube in 2013 and the patient had a recurrence of her cancer of the tongue and was evaluated at [facility], who did not recommend any additional therapy. The patient has been follow ed by her primary care physician in [place], by Dr. Borrego, who had seen her general decline and had r ecommended that she go on hospice. The patient has been on hospice for the last 6-8 months and has been able to stay at her home. During this time, they have placed her on G-tube feeding through the PEG tube with Fibersource 8 ounces 3 cans a day. The patient though does not take this regularly. She does eat some orally. The patient has been on morphine for help control of her pain. The eric ent's condition has been continued to decline. I spoke with the patient's niece, Telma Escudero, on t morning of 11/11/2016. There is no information that could be obtained from the patient and there were no other family members with her. Telma Kota was able to review the above information and a lso said that Ms. Ann has been getting gradually weaker. She developed bedsores on her hips and s acral area. She does get up some and walks a little bit in the home and does eat some and she does not regularly take the 3 cans of Fibersource in her G-tube feeding as recommended. She does use keena e morphine for pain. The patient is under the care of home health service, called [facility], out of [facility]. Telma said that they have been attentive to her, but the patient has often refuse d the care and the bathing. The patient was much weaker than usual, seemed less responsive than usual and ambulance was called a nd the patient was taken to the emergency room. At the emergency room, the doctor found her minimal ly responsive, extremely weak, dehydrated with large ulcers over the hip and ulcer over the sacrum. Chest x-ray was done, which showed diffuse chronic interstitial prominence and stable right upper l obe opacity suggesting scar. She had new patches of bibasilar densities, left greater than the righ t, suspicious for pneumonia. The patient's lab studies showed an H\T\H of 9.6 and 30.8 with a white blood cell count of 9400 with 71% segs, 10% bands, 15% lymphocytes, and a platelet count of 290. H er PT was 15.4, INR 1.2 and PTT 32. Her sodium 136, potassium 3.8, BUN 18, creatinine 0.8, GFR 69, glucose 196 and lactic acid 1.6. Creatine kinase 28. Troponin I 0.025. C-reactive protein 18.6 an d albumin 2.3. Her cath UA showed specific gravity of 1.025, 0-3 wbc's, 0-3 rbc's and 4+ bacteria. The patient was admitted to the hospital with the diagnosis of alteration in mental status; present ing with much less responsiveness than usual and also dehydration and pneumonia. The patient was st arted on IV fluids. The patient was seen early on the morning of 11/11/2016. The patient's eyes were opened when her na me was called and she was able to cooperate a little bit with the exam, but not able to talk. No in formation was able to be obtained from her. No family was with her. I reviewed her old records [facility] and also this with her niece, Telma Escudero. The history is outlined above a nd said that she is under hospice and she said that she does have some times that she is forgetful a nd is a little confused. Her repeat lab work on the morning of 11/11/2016, showed an H\T\H of 10.1 and 31.6, white blood cell count 6400 with 88% segs, 7% lymphocytes and platelet count of 266. Sodi um this morning was 139, potassium 4.1, BUN 17, creatinine 0.73, glucose 67 and albumin 2.2. PAST MEDICAL HISTORY: The patient has cancer of the tongue for which she underwent radiation therap y. She required placement of a PEG tube done by Dr. Abdirahman Alvarez, on 09/19/2014. She has had recurrence of the cancer of the tongue has been evaluated at [facility], but was not eligible for any additional chemotherapy. She had been under the care of Dr. Jenna Borrego, her primary care ph ysician and she had recommended that she undergo hospice care. She has been under hospice for the l ast 3-4 months. She received feeding through her G-tube, Fibersource 8 ounce cans a day, but does n ot regularly take these. She was hospitalized at [facility] on 08/19/2016 until 08/23/20, for severe deconditioning with history of cancer of the tongue. During that admission, she unde rwent a modified barium swallow with Speech Therapy and was found to have some penetration with thin liquids. The patient has hypertension, hypothyroidism, mild dementia, gastroesophageal reflux dise ase, coronary artery disease and anxiety. She had a PEG tube placed on 09/28/2014. PRESENT MEDICINES: Alprazolam 0.5 mg t.i.d. p.r.n., Xalatan 0.005% ophthalmic solution 1 drop in th e eyes at bedtime, carvedilol 12.5 mg b.i.d., levothyroxine 25 mcg daily, Seroquel 50 mg at bedtime, artificial tears 1 drop in the eyes b.i.d. as needed, Miralax 17 grams in 8 ounces of water per G-t ube daily, pantoprazole 40 mg daily, morphine that she has been receiving p.r.n. through hospice. T hese medicines have not been brought in for review. ALLERGIES: FLAGYL. REVIEW OF SYSTEMS: The patient is not able to go through review of systems. ACTIVITIES OF DAILY LIVING. The patient lives at home with her elderly sister. The patient most of the time is sitting or lying in bed. She has hospice to help to attend her and bathe her, but she often refuses. She is able to walk around a little bit according to her niece in the house with a w alker. She has developed sores over both the hip and the sacrum. NEURO/PSYCHIATRIC: The patient has some trouble confusion, forgetfulness and very poor judgment. HABITS: Alcohol none. Tobacco none. SOCIAL HISTORY: The patient lives with her older sister, Maliha Ann. The patient is a DNR. The pa tient does not have a medical power of patent prosecution attorney according to her niece, Telma Escudero. She has been under the care of hospice. PHYSICAL EXAMINATION: GENERAL: Shows a cachectic appearing 81-year-old white female who is lying in bed. She has an indw elling Covarrubias catheter. When her name was called, she opened her eyes and looked toward me and was a ble to assist a little bit with the exam. She is very weak and could not turn without assistance. VITAL SIGNS: Shows a temperature of 96.7, pulse 72, respirations 18, O2 sat 100% on 2 liters and bl ood pressure 141/67. Her weight is 76 pounds. HEAD: Normocephalic. EYES: Pupils are equal, round and reactive. Sclerae nonicteric. EARS: TMs are clear. NOSE: Normal. MOUTH AND THROAT: Tongue and mucous membranes are very dry. The tongue has some dried blood and so me superficial ulceration. Exam is limited. NECK: Carotids are equal and strong, no bruits. Thyroid not enlarged. LUNGS: The patient has fair breath sounds with rales at the right posterior base. HEART: Regular rate. ABDOMEN: Scaphoid with no organomegaly. The patient has a G-tube present in left upper quadrant th at is old and has dark discoloration. Abdomen has no organomegaly. EXTREMITIES: No edema. On the right hip, the patient has 2 decubitus over the right greater trocha nteric region. One measuring a centimeter in diameter and the second measuring 1-1/2 centimeters in diameter. These are tunneled and connected. The tissue is clean. There is no surrounding erythem a. These are probably at least stage III or IV. On the left hip over the greater trochanteric area , there is a large ulcer with clean base that is deep, measures 2 x 1-1/2 centimeters in diameter. It is probably a stage IV decubitus. Over the sacrum, there is a stage II decubitus that is 1 centi meter in diameter. NEUROLOGIC: The patient opened her eyes when her name was called and was able to try to help assist with movement in bed. She is extremely weak and requires help with any movement. SKIN: Turgor is diminished. IMPRESSION: 1. Bibasilar pneumonia. 2. Dehydration. A. Presenting with minimal responsiveness that is now improving as of the morning of 11/11/2016 . 3. Cancer of the tongue. A. Status post radiation therapy in 2013. B. Recurrence in 2015 evaluation, at [facility], which she did not pursue any further treatmen t. C. Under hospice care at present. 4. Severe generalized weakness. 5. Cachexia. A. With marked weight loss and weakness. 6. Decubiti. A. Stage III to IV decubiti over the right hip numbering 2 that tunnel to each other that is cl katerina. B. Stage IV over the left greater trochanter of the hip. C. Sacral decubitus stage II. 7. Hypertension. 8. Dysphagia. 9. Status post percutaneous endoscopic gastrostomy tube placement in 09/2014. 10. Hypothyroidism. 11. Gastroesophageal reflux disease. 12. Coronary heart disease, stable. 13. Anxiety. 14. Do not resuscitate. PLAN: Discussed with Telma Escudero about patient's care and the plan will be to manage her comfort. The patient has had recurrence of her cancer of the tongue for which she do not opt for any further treatment following the initial radiation and subsequent recurrence. The patient will be continued on the IV fluids for cautious hydration and we will place the patient on the antibiotics for the pn eumonia per request of the niece. I will later try reintroduction of the enteral feeding. Her prog nosis remains extremely poor. Once stable, we will discuss with the family about post-hospital care and anticipate that she will need to enter a retirement. Her level of the needs are going to exc eed what her elderly sister can provide, there hospice care can be resumed.
[2016-11-12 05:19] LABS: Anion Gap 11 mmol/L (10-20); BUN (Urea Nitrogen) 10 mg/dL (9.8-20.1); Calc. Creatinine Clearance 37 mL/min (70-130); Calcium 8.1 mg/dL (7.8-10.44); Carbon Dioxide 26 mmol/L (23-31); Chloride 106 mmol/L (98-107); Estimated GFR-MDRD 85; Glucose 165 mg/dL (83-110); Potassium 3.6 mmol/L (3.5-5.1); Sodium 139 mmol/L (136-145)
[2016-11-12 05:25] LABS: Hemoglobin 9.8 g/dL (12.0-16.0); Hypochromia SLIGHT = 6-15 cells (100X) (0-5/hpf); Lymphocytes 8 % (21-51); MDiff Complete? YES; Mean Corpuscular HGB CONC 31.9 g/dL (32.0-36.0); Mean Corpuscular Hemoglobin 26.5 pg (27.0-31.0); Monocytes 4 % (0-10); Neutrophil 85 % (42-75); Platelet Count 259 thou/uL (130-400); RBC Distribution Width 18.1 % (11.5-14.5); Reactive Lymphocytes 3 % (0-10); White Blood Cell (WBC) Count 6.7 thou/uL (4.8-10.8)
[2016-11-12] MEDS: Dextrose 5 % And 0.9 % NaCl 1,000 ML IV SCH ×2 (05:54→23:29)
[2016-11-12] MEDS: cefTRIAXone\\ROCEPHIN 1 GM in Sodium Chloride 0.9% 100 ML IVPB SCH (08:38)
[2016-11-12] MEDS: Azithromycin 500 MG in Sodium Chloride 0.9% 250 ML 250 ML IVPB SCH (08:38)
[2016-11-12] MEDS: Pantoprazole 40 MG VIAL IVP SCH (08:38)
--- NOTE | 2016-11-12 15:20 | PRG ---
DATE OF SERVICE: 11/12/2016 SUBJECTIVE: Yesterday afternoon the patient was much more alert and was complaining of pain. She d id receive the morphine IV and with repositioning she was much more comfortable. It has been diffic ult doing mouth care because her mouth is so sore. They have been able to use an aqueous spray and just gentle cleansing around the lips and this has helped. OBJECTIVE: The patient lying in bed. Her eyes are open. She is alert and acknowledges me, attempt s to talk, but has trouble because of soreness in her mouth. Her vital signs show a temperature of 97.4, pulse 65, respirations 17, O2 sat 100% on 2 liters, blood pressure 144/66. Her output over e last 24 hours has been 350 mL. Weight is stable at 76. Her lungs have rales at the left posterio r base, otherwise clear. Heart, regular rate. Abdomen is scaphoid. Mouth; the patient has some dr ied blood at the corner of the mouth. The mucous membranes in the mouth are still dry and there are multiple ulcerations and some dried blood on the tongue. Wounds are dressed and dry. These will be changed by nursing staff later. If there is some change we will reevaluate then. Her labs shows a H\T\H of 9.8 and 30.7, WBC count 6700 with 85% segs, 8% lymphocytes, and platelet count of 259,00 0. Sodium 139, potassium 3.6. Her BUN is 10, creatinine 0.67. GFR is up to 85. Her glucose was 1 65. Culture taken from the gastrostomy site had no WBCs, there were many epithelial cells and there was a combination of gram negative rods, gram positive cocci, budding yeast. Her culture from the right hip ulcer has no WBCs, there is some Staph aureus growing. The wound on exam did not look inf ected, I suspect this is just a colonization of the wound. The blood cultures have no growth x2. T he left hip has no WBCs, there are a few gram positive cocci. ASSESSMENT: 1. Bibasilar pneumonia. A. A little improved as of 11/12/2016. 2. Dehydration. A. Presenting with minimal responsiveness that is now improving as of the morning of 11/11/2016 . B. Dehydration improved, and the patient is more alert and responsive as of 11/12/2016. 3. Cancer of the tongue. A. Status post radiation therapy in 2013. B. Recurrence in 2015 evaluation, at [facility], which she did not pursue any further treatmen t. C. Under hospice care at present. 4. Severe generalized weakness. 5. Cachexia. A. With marked weight loss and weakness. 6. Decubiti. A. Stage III to IV decubiti over the right hip numbering 2 that tunnel to each other that is cl katerina. B. Stage IV over the left greater trochanter of the hip. C. Sacral decubitus stage II. D. The wounds are unchanged and stable as of 11/12/2016. 7. Hypertension. 8. Dysphagia. A. Failed swallow evaluation as of 11/11/2016. B. We will initiate enteral feeding through PEG tube as of 11/12/2016. 9. Status post percutaneous endoscopic gastrostomy tube placement in 09/2014. 10. Hypothyroidism. 11. Gastroesophageal reflux disease. 12. Coronary heart disease, stable. 13. Anxiety. 14. Do not resuscitate. PLAN: Will continue the IV hydration with D5 normal saline. We will continue the IV antibiotic. T he cultures from the wound probably represent colonization's. The wounds do not look infected. We will initiate enteral feeding through the PEG tube, which is functioning fine. We will use an enter al formula 1.2 calories per mL and will start a bolus feeding at 8 ounces every 8 hours, preceded an d followed by 60 mL of water flush. Continue gentle mouth care.
[2016-11-13] MEDS: Dextrose 5 % And 0.9 % NaCl 1,000 ML IV SCH (02:27)
[2016-11-13 05:20] LABS: #Basophils 0.1 thou/uL (0.0-0.2); #Lymphocytes 0.8 thou/uL (1.20-3.40); #Monocytes 0.3 thou/uL (0.11-0.59); #Neutrophils 4.7 thou/uL (1.40-6.50); %Basophils 0.9 % (0.0-1.0); %Eosinophils 0.7 % (0.0-10.0); %Lymphocytes 13.5 % (21.0-51.0); %Monocytes 5.7 % (0.0-10.0); %Neutrophils 79.3 % (42.0-75.0); Hemoglobin 9.2 g/dL (12.0-16.0); Mean Corpuscular HGB CONC 31.3 g/dL (32.0-36.0); Mean Corpuscular Hemoglobin 25.9 pg (27.0-31.0); Mean Corpuscular Volume 82.8 fl (81.0-99.0); Mean Platelet Volume 6.3 fL (7.4-10.4); Platelet Count 238 thou/uL (130-400); RBC Distribution Width 18.1 % (11.5-14.5); Red Blood Cell (RBC) Count 3.56 mill/uL (4.20-5.40); White Blood Cell (WBC) Count 5.9 thou/uL (4.8-10.8)
[2016-11-13 05:28] LABS: Anion Gap 11 mmol/L (10-20); BUN (Urea Nitrogen) 8 mg/dL (9.8-20.1); Calc. Creatinine Clearance 42 mL/min (70-130); Calcium 7.7 mg/dL (7.8-10.44); Carbon Dioxide 22 mmol/L (23-31); Chloride 110 mmol/L (98-107); Estimated GFR-MDRD Greater than 90; Glucose 152 mg/dL (83-110); Potassium 3.4 mmol/L (3.5-5.1); Sodium 140 mmol/L (136-145)
[2016-11-13] MEDS: Azithromycin 500 MG in Sodium Chloride 0.9% 250 ML 250 ML IVPB SCH (07:55)
[2016-11-13] MEDS: cefTRIAXone\\ROCEPHIN 1 GM in Sodium Chloride 0.9% 100 ML IVPB SCH (07:56)
[2016-11-13] MEDS: Pantoprazole 40 MG VIAL IVP SCH (07:56)
[2016-11-13] MEDS: D5 0.9% NS w/ 20 mEq KCl 1,000 ML IV SCH ×3 (09:03→22:57)
--- NOTE | 2016-11-13 10:38 | RAD ---
RADIOGRAPH CHEST 1 VIEW: Date: 11-13-16 Time: 8:40 a.m. HISTORY: 81-year-old female. Follow up pneumonia. COMPARISON: 11-10-16 FINDINGS: The patient is now rotated to the left making comparison more challenging. There appears to be a ne w broad area of increased attenuation in the right mid and lower lung zones. There is interval incr ease in the attenuation of the retrocardiac portion of the left lower lobe, which now appears consol idated. There is blunting of the left lateral costophrenic angle, questionable for superimposed sma ll left pleural effusion. No pulmonary edema or cardiomegaly. No pneumothorax. IMPRESSION: 1. Interval worsening of left lower lobe opacification, now consolidated, evidence for worsening of left lower lobe pneumonia. 2. Interval development of, or worsening of, right lower lung zone attenuation, questionable for ri ght lower lobe pneumonia. 3. Possible left or bilateral small pleural effusions. CELI POS: MI
--- NOTE | 2016-11-13 14:28 | PRG ---
DATE OF SERVICE: 11/13/2016 SUBJECTIVE: Nurses said that the patient has been much more interactive. She seemed to be very com fortable with the periodic IV morphine. Her wounds have been very clean and unchanged. Her G-tube feeding is going well and she has had no significant residual. The patient is still unable to safel y swallow. OBJECTIVE: The patient is lying in bed. Her eyes are open, she looks comfortable. Her vital signs show a temperature of 99.5, pulse 73, respirations 20, O2 saturation 97%, blood pressure 137/63. H er lungs have rales and some bronchial breath sounds particularly at the left base. Minimal rales a t the right base. Heart, regular rate. Mouth is still dry. There are still some dried blood on th e tongue. The mouth, though, does look a little bit better. Her lab shows H\T\H of 9.2 and 29.4. White cell count 5900 with 79% segs, 13% lymphocytes, platelet count of 238. Sodium 140, potassium 3.4, BUN 8, creatinine 0.59, glucose 152. The cultures from around the G-tube grew an E. coli sensi tive to the ceftriaxone. This probably represented the colonization. The wound from the left hip h ad a few gram positive cocci. Again, the wound has not looked infected and the culture from the rig ht hip is growing Staph aureus, sensitivity pending. Again, this wound did not look infected and ag ain probably represents colonization. Blood cultures and urine culture had no growth. ASSESSMENT: 1. Bibasilar pneumonia. A. Continued mild improvement as of 11/13/2016. 2. Dehydration. A. Presenting with minimal responsiveness that is now improving as of the morning of 11/11/2016 . B. Resolving with correction of the mild prerenal azotemia as of 11/13/2016. 3. Cancer of the tongue. A. Status post radiation therapy in 2013. B. Recurrence in 2015 evaluation, at [facility], which she did not pursue any further treatmen t. C. Under hospice care prior to admission. D. Multiple operations on the tongue, may represent some of her cancer recurrence. 4. Severe generalized weakness. 5. Cachexia. A. With marked weight loss and weakness. 6. Decubiti. A. Stage III to IV decubiti over the right hip numbering 2 that tunnel to each other that is cl katerina. B. Stage IV over the left greater trochanter of the hip. C. Sacral decubitus stage II. D. The wounds are unchanged and stable as of 11/13/2016. 7. Hypertension. 8. Dysphagia. A. Failed swallow evaluation as of 11/11/2016. B. Enteral feeding initiated on 11/12/2016 through the PEG tube and on 11/12/2016. G-tube feedings are going well using Jevity 1.5, 8 ounces every 8 hours. 9. Status post percutaneous endoscopic gastrostomy tube placement in 09/2014. 10. Hypothyroidism. 11. Gastroesophageal reflux disease. 12. Coronary heart disease, stable. 13. Anxiety. 14. Do not resuscitate. PLAN: We will change the patient's fluid to D5 normal saline with 20 of KCl per liter and run this at 100 mL per hour, continued IV antibiotics, continue comfort measures. Continue enteral feeding. Continue present wound care.
[2016-11-13] MEDS ORDERED: Scopolamine 1.5 mg/72 hour Patch TOP PRN (14:29)
[2016-11-13] MEDS: Atropine Sulfate 1% Ophth Soln 5 ml Bottle PO PRN (14:35)
[2016-11-14 05:19] LABS: Anion Gap 12 mmol/L (10-20); BUN (Urea Nitrogen) 8 mg/dL (9.8-20.1); Calc. Creatinine Clearance 44 mL/min (70-130); Calcium 7.7 mg/dL (7.8-10.44); Carbon Dioxide 24 mmol/L (23-31); Chloride 103 mmol/L (98-107); Estimated GFR-MDRD Greater than 90; Glucose 85 mg/dL (83-110); Potassium 3.9 mmol/L (3.5-5.1); Sodium 135 mmol/L (136-145)
[2016-11-14 05:27] LABS: Hemoglobin 8.9 g/dL (12.0-16.0); Mean Corpuscular HGB CONC 30.8 g/dL (32.0-36.0); Mean Corpuscular Hemoglobin 25.4 pg (27.0-31.0); Mean Corpuscular Volume 82.3 fl (81.0-99.0); Mean Platelet Volume 7.6 fL (7.4-10.4); Platelet Count 223 thou/uL (130-400); RBC Distribution Width 17.8 % (11.5-14.5); Red Blood Cell (RBC) Count 3.51 mill/uL (4.20-5.40)
[2016-11-14 05:28] LABS: Hypochromia SLIGHT = 6-15 cells (100X) (0-5/hpf); Lymphocytes 10 % (21-51); MDiff Complete? YES; Monocytes 5 % (0-10); Neutrophil 84 % (42-75); PLT Morphology Comment Appears Adequate; Reactive Lymphocytes 1 % (0-10)
[2016-11-14] MEDS: Morphine Sulfate 2 MG/ML SYRINGE SLOW IVP PRN (05:31)
[2016-11-14] MEDS: Azithromycin 500 MG in Sodium Chloride 0.9% 250 ML 250 ML IVPB SCH (09:55)
[2016-11-14] MEDS: cefTRIAXone\\ROCEPHIN 1 GM in Sodium Chloride 0.9% 100 ML IVPB SCH (09:55)
[2016-11-14] MEDS: Pantoprazole 40 MG VIAL IVP SCH (09:57)
[2016-11-14] MEDS: D5 0.9% NS w/ 20 mEq KCl 1,000 ML IV SCH ×2 (09:58→21:58)
--- NOTE | 2016-11-14 17:34 | PRG ---
DATE OF SERVICE: 11/14/2016 SUBJECTIVE: The patient said she is feeling better. She is just tired of the bed. She was hoping to go home, but really has an adequate help to take care of her. She does have an older sister who physically is not able to manage this patient's multiple needs. The patient's pain is better. Her mouth has been better. OBJECTIVE: The patient is lying in bed with the head elevated. She is alert and talkative, althoug h she whisper little hard to understand. Her vital signs show temperature 99.3, maximum temp in the last 24 hours 100.6, pulse 79, respirations 16, O2 sat 100% on room air. Her blood pressure is 123 /59. Her output over the last 24 hours has been 860. Weight is stable at 76 pounds. Her mouth and mucous membranes are moist, there is still some little dried blood on the tongue, but overall the m outh looks a little better. Her lungs have rales at the bases, a little less than yesterday and the re is some bronchial breath sounds at the right base. Heart, regular rate. The wounds on the hips both looked clean. LABORATORY DATA: H\T\H 8.9 and 28.9, white cell count 6000 with 84% segs, 10% lymphocytes, and plat elet count of 223,000. Her sodium is 135, potassium 3.9, BUN 8, creatinine 0.56, glucose 85. Cultu res from the karsten-gastrostomy site growing E. coli, Klebsiella pneumoniae and Staphylococcus aureus. Wound from the hip is growing Staph aureus that is sensitive to the ceftriaxone. The E. coli from the karsten-gastrostomy site is sensitive to the ceftriaxone, Klebsiella sensitive to the ceftriaxone, and staph sensitive to ceftriaxone. The culture from the right hip is growing Staph aureus and Pse udomonas, sensitivities pending. The wounds do not look infected, suspect these were just colonizat ion, although the multi-organisms are sensitive to the ceftriaxone. Her repeat chest x-ray that was rotated, but still look like there was increased opacification at the left base and development of some at the right base. ASSESSMENT: 1. Bibasilar pneumonia. A. Improved as of 11/14/2016. 2. Dehydration. A. Presenting with minimal responsiveness that is now improving as of the morning of 11/11/2016 . B. Resolved as of 11/14/2016. 3. Cancer of the tongue. A. Status post radiation therapy in 2013. B. Recurrence in 2015 evaluation, at [facility], which she did not pursue any further treatmen t. C. Under hospice care prior to admission. 4. Severe generalized weakness. 5. Cachexia. A. With marked weight loss and weakness. 6. Decubiti. A. Stage III to IV decubiti over the right hip numbering 2 that tunnel to each other that is cl katerina. B. Stage IV over the left greater trochanter of the hip. C. Sacral decubitus stage II. D. The wounds are unchanged and stable as of 11/14/2016. 7. Hypertension. 8. Dysphagia. A. Failed swallow evaluation as of 11/11/2016. B. Enteral feeding initiated on 11/12/2016 through the PEG tube and on 11/12/2016. G-tube feedings are going well using Jevity 1.5, 8 ounces every 8 hours. 9. Status post percutaneous endoscopic gastrostomy tube placement in 09/2014. 10. Hypothyroidism. 11. Gastroesophageal reflux disease. 12. Coronary heart disease, stable. 13. Anxiety. 14. Do not resuscitate. PLAN: Overall, the patient looks a little better. She still needs the IV fluids and the IV antibio tics. We will stop the azithromycin, but continue the ceftriaxone. We will continue IV fluids and continue the G-tube feeding, which seems to be going well with the Jevity 1.5 Gold per mL. Continue present wound care. Explained to the patient that her condition is such that she cannot receive lin quate care at home from her older sister. At this point, we will move patient to Extended Care for continuation of IV fluids, IV antibiotics, and wound care. We will visit with family and help arran jerica for care plan post-hospital. Patient probably will go back under hospice care. I have not recei festus okay yet from her insurance for her move to extended care. For present, we will continue on ext ended care.
[2016-11-15] MEDS ORDERED: Lorazepam 2 MG/ML VIAL ONE (07:36)
[2016-11-15] MEDS ORDERED: Lorazepam 2 MG/ML VIAL SLOW IVP SCH (08:00)
[2016-11-15 08:23] LABS: #Eosinphils 0.1 thou/uL (0.0-0.7); #Lymphocytes 0.8 thou/uL (1.20-3.40); #Monocytes 0.3 thou/uL (0.11-0.59); #Neutrophils 8.9 thou/uL (1.40-6.50); %Basophils 0.2 % (0.0-1.0); %Eosinophils 1.4 % (0.0-10.0); %Lymphocytes 7.6 % (21.0-51.0); %Monocytes 3.3 % (0.0-10.0); %Neutrophils 87.5 % (42.0-75.0); Anion Gap 11 mmol/L (10-20); BUN (Urea Nitrogen) 8 mg/dL (9.8-20.1); Calc. Creatinine Clearance 42 mL/min (70-130); Carbon Dioxide 27 mmol/L (23-31); Chloride 100 mmol/L (98-107); Estimated GFR-MDRD Greater than 90; Glucose 100 mg/dL (83-110); Hemoglobin 10.3 g/dL (12.0-16.0); Mean Corpuscular HGB CONC 32.4 g/dL (32.0-36.0); Mean Corpuscular Hemoglobin 26.1 pg (27.0-31.0); Mean Corpuscular Volume 80.7 fl (81.0-99.0); Mean Platelet Volume 7.8 fL (7.4-10.4); Platelet Count 255 thou/uL (130-400); Potassium 4.1 mmol/L (3.5-5.1); RBC Distribution Width 17.6 % (11.5-14.5); Red Blood Cell (RBC) Count 3.93 mill/uL (4.20-5.40); Sodium 134 mmol/L (136-145); White Blood Cell (WBC) Count 10.2 thou/uL (4.8-10.8)
[2016-11-15] MEDS: Pantoprazole 40 MG VIAL IVP SCH (09:08)
[2016-11-15] MEDS: cefTRIAXone\\ROCEPHIN 1 GM in Sodium Chloride 0.9% 100 ML IVPB SCH (09:08)
[2016-11-15] MEDS: D5 0.9% NS w/ 20 mEq KCl 1,000 ML IV SCH (09:09)
[2016-11-15] MEDS: Dextrose 5 % And 0.9 % NaCl 1,000 ML IV SCH ×2 (10:58→23:16)
[2016-11-15] MEDS: Nystatin 500,000 UNITS/5 ML UDCUP FS SCH ×3 (12:52→20:39)
[2016-11-15] MEDS: Lidocaine Viscous Sol 2% 15 ml UD Cup FS SCH ×3 (12:52→20:39)
[2016-11-15] MEDS: Atropine Sulfate 1% Ophth Soln 5 ml Bottle PO PRN (13:02)
--- NOTE | 2016-11-15 20:48 | PRG ---
DATE OF SERVICE: 11/15/2016 SUBJECTIVE: The patient was restless this morning, had received morphine on 2 occasions and also wa s given Ativan and it seemed to help relax her. This morning, she is lying in bed with the head cheryl vated. She attempts to talk a little, but cannot understand her, she is still unable to swallow. OBJECTIVE: The patient is lying in bed, attempts to talk, but cannot understand her. She is a jose le restless. Her vital signs show a temperature of 98.2. Pulse 75, respirations 22, O2 sat 96%, bl ood pressure 128/75. Her mouth, the buccal mucosa is dry. The tongue has little pustular areas and little superficial ulceration and some dried blood present. Her lungs have decreased breath sounds at the left base. There are still some rales, bronchial breath sounds at the right base. Extremities; no edema. The wounds on the hips and sacrum are clean with no surrounding redness. He r lab shows an H\T\H of 10.3 and 31.7, white blood cell count 10,200 with 87% segs, 8% lymphocytes, platelet count of 255,000. Sodium 134, potassium 4.1, BUN 8, creatinine 0.58, GFR greater than 90, glucose 100. ASSESSMENT: 1. Bibasilar pneumonia. A. Stable as of 11/15/2016. 2. Dehydration. A. Presenting with minimal responsiveness that is now improving as of the morning of 11/11/2016 . B. Resolved as of 11/14/2016. 3. Cancer of the tongue. A. Status post radiation therapy in 2013. B. Recurrence in 2015 evaluation, at [facility], which she did not pursue any further treatmen t. C. Under hospice care prior to admission. 4. Severe generalized weakness. A. Unchanged as of 11/15/2016. 5. Cachexia. A. With marked weight loss and weakness. B. Unchanged as of 11/15/2016. 6. Decubiti. A. Stage III to IV decubiti over the right hip numbering 2 that tunnel to each other that is cl katerina. B. Stage IV over the left greater trochanter of the hip. C. Sacral decubitus stage II. D. The wounds are clean and stable as of 11/15/2016. 7. Hypertension. 8. Dysphagia. A. Failed swallow evaluation as of 11/11/2016. B. Enteral feeding initiated on 11/12/2016 through the PEG tube and on 11/12/2016. G-tube feedings are going well using Jevity 1.5, 8 ounces every 8 hours. 1. Enteral feedings going without problems. 9. Status post percutaneous endoscopic gastrostomy tube placement in 09/2014. 10. Hypothyroidism. 11. Gastroesophageal reflux disease. 12. Coronary heart disease, stable. 13. Anxiety. 14. Do not resuscitate. 15. Mouth pain. A. Secondary to the cancer of the tongue, recent dehydration, probable history of recurrence of the cancer of the tongue with possible secondary yeast infection. PLAN: Will continue the ceftriaxone for the pneumonia. Continue the IV fluids. Will use the D5 no rmal saline, but will stop the potassium. We will try patient on a combination of viscous lidocaine with Mycostatin to paint in the mouth 4 times a day for the comfort and secondary yeast. Doroteo lakhani, we will place her on Diflucan IV. We will continue comfort measures. We will add lorazepam to use at 4 hour intervals one-half to 1 mg if needed. Continue the morphine as needed. Will add Fe ntanyl patch. Her prognosis is very, very poor. The patient was too weak to try to get up. Yester day she was more alert, more talkative. I have not heard yet back from her [employer] for appro reyna for extended care. Will continue her present care in acute care for now. Her condition is such that she could not be comfortably handled in a home situation under hospice.
[2016-11-15] MEDS: Lorazepam 2 MG/ML VIAL SLOW IVP PRN (21:22)
[2016-11-16] MEDS: NACL ISO OSM IVPB SCH ×2 (07:56)
[2016-11-16] MEDS: ADMIXTURE FEE IVPB SCH ×2 (07:56)
[2016-11-16] MEDS: FLUCONAZOLE IVPB SCH ×2 (07:56)
[2016-11-16] MEDS: cefTRIAXone\\ROCEPHIN 1 GM in Sodium Chloride 0.9% 100 ML IVPB SCH (08:07)
[2016-11-16] MEDS: Lidocaine Viscous Sol 2% 15 ml UD Cup FS SCH ×4 (08:08→19:42)
[2016-11-16] MEDS: Nystatin 500,000 UNITS/5 ML UDCUP FS SCH ×4 (08:08→19:41)
[2016-11-16] MEDS: Pantoprazole 40 MG VIAL IVP SCH (08:09)
[2016-11-16] MEDS: Dextrose 5 % And 0.9 % NaCl 1,000 ML IV SCH ×2 (13:37→19:42)
[2016-11-16] MEDS: Lorazepam 2 MG/ML VIAL SLOW IVP PRN (14:26)
--- NOTE | 2016-11-16 22:04 | PRG ---
DATE OF SERVICE: 11/16/2016 SUBJECTIVE: The patient required morphine and Ativan this morning as she has been sleeping since. She did allow a little more mouth care yesterday using the Mycostatin and lidocaine and the mouth lo oked better this morning. The patient is frequently refusing the vital signs. She also at times co mplained of being a little hungry. Presently, she is receiving the Jevity 1.5 eight ounces every 8 hours, providing 1072 calories a day. OBJECTIVE: GENERAL: The patient is lying in bed. As we examined her, she awakened and became more alert. VITAL SIGNS: Shows a temperature of 96.7, pulse of 77, respirations of 22, O2 saturation 98% and bl ood pressure of 135/64. HEENT: Mouth is moist. The dried blood has gone. The tongue looks a little better. There are sti ll some other superficial ulcerations. LUNGS: Clear on the anterior. Posteriorly, breath sounds are better. Did not have any rales or wh eeze. Overall, the lung sounds better. HEART: Regular rate. EXTREMITIES: No edema. Wounds unchanged. ASSESSMENT: 1. Bibasilar pneumonia. A. Improved as of 11/16/2016. 2. Dehydration. A. Presenting with minimal responsiveness that is now improving as of the morning of 11/11/2016 . B. Resolved as of 11/14/2016. 3. Cancer of the tongue. A. Status post radiation therapy in 2013. B. Recurrence in 2015 evaluation, at [facility], which she did not pursue any further treatmen t. C. Under hospice care prior to admission. 4. Severe generalized weakness. A. Unchanged as of 11/16/2016. 5. Cachexia. A. With marked weight loss and weakness. B. Unchanged as of 11/16/2016. 6. Decubiti. A. Stage III to IV decubiti over the right hip numbering 2 that tunnel to each other that is cl katerina. B. Stage IV over the left greater trochanter of the hip. C. Sacral decubitus stage II. D. The wounds are clean and stable as of 11/16/2016. 7. Hypertension. 8. Dysphagia. A. Failed swallow evaluation as of 11/11/2016. B. Enteral feeding initiated on 11/12/2016 through the PEG tube and on 11/12/2016. G-tube feedings are going well using Jevity 1.5, 8 ounces every 8 hours. 1. Enteral feedings going without problems as of 11/16/2016. 9. Status post percutaneous endoscopic gastrostomy tube placement in 09/2014. 10. Hypothyroidism. 11. Gastroesophageal reflux disease. 12. Coronary heart disease, stable. 13. Anxiety. 14. Do not resuscitate. 15. Mouth pain. A. Secondary to the cancer of the tongue, recent dehydration, probable history of recurrence B. The mouth looks a little better as of 11/16/2016. PLAN: Continue present care. Continue comfort measures. Prognosis remains very poor.
[2016-11-17] MEDS: Lorazepam 2 MG/ML VIAL SLOW IVP PRN ×3 (05:34→23:48)
[2016-11-17] MEDS: cefTRIAXone\\ROCEPHIN 1 GM in Sodium Chloride 0.9% 100 ML IVPB SCH (08:13)
[2016-11-17] MEDS: Pantoprazole 40 MG VIAL IVP SCH (08:13)
[2016-11-17] MEDS: NACL ISO OSM IVPB SCH ×2 (08:15)
[2016-11-17] MEDS: ADMIXTURE FEE IVPB SCH ×2 (08:15)
[2016-11-17] MEDS: Lidocaine Viscous Sol 2% 15 ml UD Cup FS SCH ×4 (08:15→20:38)
[2016-11-17] MEDS: FLUCONAZOLE IVPB SCH ×2 (08:15)
[2016-11-17] MEDS: Morphine Sulfate 2 MG/ML SYRINGE SLOW IVP PRN (09:28)
[2016-11-17] MEDS: Dextrose 5 % And 0.9 % NaCl 1,000 ML IV SCH (12:27)
[2016-11-17] MEDS: Nystatin 500,000 UNITS/5 ML UDCUP FS SCH ×3 (14:28→20:38)
--- NOTE | 2016-11-17 14:29 | PRG ---
DATE OF SERVICE: 11/17/2016 SUBJECTIVE: Nurses report no change in the patient. She is still requiring periodic injections of the morphine and lorazepam. The wounds are unchanged. The patient not able to eat. She is still u sing the atropine drops to help with the secretions. OBJECTIVE: The patient is lying in bed quietly, but with any movement she gets restless and a littl e uncomfortable. Her vital signs show temperature 96.1, pulse 73, respirations 20, O2 sat 95% on 2 liters, blood pressure 135/64. Lungs are clear. There are some minimal rales at the bases. Heart: Regular rate. Wounds unchanged. Mouth appears a little better. ASSESSMENT: 1. Bibasilar pneumonia. A. Stable as of 11/17/2016. 2. Dehydration. A. Presenting with minimal responsiveness that is now improving as of the morning of 11/11/2016 . B. Resolved as of 11/14/2016. 3. Cancer of the tongue. A. Status post radiation therapy in 2013. B. Recurrence in 2015 evaluation, at [facility], which she did not pursue any further treatmen t. C. Under hospice care prior to admission. 4. Severe generalized weakness. A. Unchanged as of 11/17/2016. 5. Cachexia. A. With marked weight loss and weakness. B. Unchanged as of 11/17/2016. 6. Decubiti. A. Stage III to IV decubiti over the right hip numbering 2 that tunnel to each other that is cl katerina. B. Stage IV over the left greater trochanter of the hip. C. Sacral decubitus stage II. D. The wounds are clean and stable as of 11/17/2016. 7. Hypertension. 8. Dysphagia. A. Failed swallow evaluation as of 11/11/2016. B. Enteral feeding initiated on 11/12/2016 through the PEG tube and on 11/12/2016. G-tube feedings are going well using Jevity 1.5, 8 ounces every 8 hours. 1. Enteral feedings going without problems as of 11/17/2016. 9. Status post percutaneous endoscopic gastrostomy tube placement in 09/2014. 10. Hypothyroidism. 11. Gastroesophageal reflux disease. 12. Coronary heart disease, stable. 13. Anxiety. 14. Do not resuscitate. 15. Mouth pain. A. Secondary to the cancer of the tongue, recent dehydration, probable history of recurrence B. The mouth looks a little better as of 11/17/2016. PLAN: We will continue the IV antibiotics for another 2 days, which will complete a 10 day course a nd then will probably stop these. Continue the enteral feeding through the PEG tube. The patient i s still requiring the IV morphine and the IV lorazepam periodically. Continue present wound care. The patient eventually will return to hospice care. Presently her level of care exceeds what can be given in the home.
[2016-11-18] MEDS: Dextrose 5 % And 0.9 % NaCl 1,000 ML IV SCH ×3 (05:04→23:01)
[2016-11-18] MEDS ORDERED: Morphine Sulfate 10 mg/0.5 ml Oral Syringe SL PRN ×2 (08:02→08:03)
[2016-11-18] MEDS: cefTRIAXone\\ROCEPHIN 1 GM in Sodium Chloride 0.9% 100 ML IVPB SCH (10:17)
[2016-11-18] MEDS: ADMIXTURE FEE IVPB SCH ×2 (10:18)
[2016-11-18] MEDS: FLUCONAZOLE IVPB SCH ×2 (10:18)
[2016-11-18] MEDS: NACL ISO OSM IVPB SCH ×2 (10:18)
[2016-11-18] MEDS: Nystatin 500,000 UNITS/5 ML UDCUP FS SCH ×4 (10:19→20:35)
[2016-11-18] MEDS: Lidocaine Viscous Sol 2% 15 ml UD Cup FS SCH ×4 (10:19→20:34)
[2016-11-18] MEDS: Pantoprazole 40 MG VIAL IVP SCH (10:19)
--- NOTE | 2016-11-18 14:00 | PRG ---
DATE OF SERVICE: 11/18/2016 SUBJECTIVE: The patient rested well last night. Nurses have been able to get her up into a Yvette ch air on occasion. She was a little frightened in the process of transferring to the chair. She was able to bear a little weight and once in a chair seemed enjoyed this. She is not having to receive the IV morphine as often. She is on the fentanyl patch which seems to have helped some. OBJECTIVE: The patient lying in bed asleep. She was easily aroused to more alert state, but any mo vement seems to make her uncomfortable. Her vital signs show a temperature of 97.8, pulse 74, respi rations 18, O2 sat 95% on room air, blood pressure 138/64. Her lungs are clear except for some rale s at the right posterior base. Heart; regular rate. The wound is unchanged. ASSESSMENT: 1. Bibasilar pneumonia. A. Improved as of 11/18/2016. 2. Dehydration. A. Presenting with minimal responsiveness that is now improving as of the morning of 11/11/2016 . B. Resolved as of 11/14/2016. 3. Cancer of the tongue. A. Status post radiation therapy in 2013. B. Recurrence in 2015 evaluation, at [facility], which she did not pursue any further treatmen t. C. Under hospice care prior to admission. 4. Severe generalized weakness. A. Unchanged as of 11/18/2016. 5. Cachexia. A. With marked weight loss and weakness. B. Unchanged as of 11/18/2016. 6. Decubiti. A. Stage III to IV decubiti over the right hip numbering 2 that tunnel to each other that is cl katerina. B. Stage IV over the left greater trochanter of the hip. C. Sacral decubitus stage II. D. The wounds are clean and stable as of 11/18/2016. 7. Hypertension. 8. Dysphagia. A. Failed swallow evaluation as of 11/11/2016. B. Enteral feeding initiated on 11/12/2016 through the PEG tube and on 11/12/2016. G-tube feedings are going well using Jevity 1.5, 8 ounces every 8 hours. 1. Enteral feedings going without problems as of 11/18/2016. 9. Status post percutaneous endoscopic gastrostomy tube placement in 09/2014. 10. Hypothyroidism. 11. Gastroesophageal reflux disease. 12. Coronary heart disease, stable. 13. Anxiety. 14. Do not resuscitate. 15. Mouth pain. A. Secondary to the cancer of the tongue, recent dehydration, probable history of recurrence B. The mouth looks a little better as of 11/17/2016. PLAN: The patient's condition is stable. Her pain seems to be a little better controlled and she i s not having to receive the morphine IV near as often. Will order morphine concentrate to be given sublingual in an effort to see if her pain and comfort can be managed without the IV medication, pre paratory to consideration of a move to a long term. Will continue the IV antibiotics. This is h er 8th day of IV ceftriaxone. If IV holds up we will try to complete a 10 day course. Still have n ot heard from her insurance whether or not she is eligible to move to extended care per her insuranc e. Will reduce her IV fluids to 50 mL per hour. We will order morphine concentrate 20 mg per mL 1 /2 to 1 mL every 2 hour sublingual p.r.n. Continue present wound care.
[2016-11-19] MEDS: Lorazepam 2 MG/ML VIAL SLOW IVP PRN ×2 (01:32→11:12)
[2016-11-19] MEDS: Lidocaine Viscous Sol 2% 15 ml UD Cup FS SCH ×2 (08:18→13:08)
[2016-11-19] MEDS: Nystatin 500,000 UNITS/5 ML UDCUP FS SCH ×2 (08:18→13:08)
[2016-11-19] MEDS: Pantoprazole 40 MG VIAL IVP SCH (08:20)
[2016-11-19] MEDS: NACL ISO OSM IVPB SCH ×2 (08:21)
[2016-11-19] MEDS: FLUCONAZOLE IVPB SCH ×2 (08:21)
[2016-11-19] MEDS: ADMIXTURE FEE IVPB SCH ×2 (08:21)
[2016-11-19] MEDS: cefTRIAXone\\ROCEPHIN 1 GM in Sodium Chloride 0.9% 100 ML IVPB SCH (08:22)
[2016-11-19 09:02] VITALS: BP 152/69; TEMP 98
--- NOTE | 2016-11-19 10:35 | PRG ---
DATE OF SERVICE: 11/19/2016 SUBJECTIVE: The nurses said the patient is doing about the same. They think her mouth is a little better. They tried morphine sublingual, she got a little mildly choked on this. OBJECTIVE: This morning the patient is awake, alert, tried to talk, but cannot understand her. She looks comfortable. Her temperature is 98, pulse 70, respirations 16, O2 saturation 98%, blood pres sure 152/69. Lungs are clear. Heart, regular rate. Abdomen is scaphoid, G-tube is still functioni ng fine. Her mouth, mucous membranes are moist. The little ulcerations and dried blood are resolvi ng in the mouth. ASSESSMENT: 1. Bibasilar pneumonia. A. Improved as of 11/19/2016. 2. Dehydration. A. Presenting with minimal responsiveness that has resolved as of 11/19/2016. B. Resolved as of 11/14/2016. 3. Cancer of the tongue. A. Status post radiation therapy in 2013. B. Recurrence in 2015 evaluation, at [facility], which she did not pursue any further treatmen t. C. Under hospice care prior to admission. 4. Severe generalized weakness. A. Unchanged as of 11/19/2016. 5. Cachexia. A. With marked weight loss and weakness. B. Unchanged as of 11/19/2016. 6. Decubiti. A. Stage III to IV decubiti over the right hip numbering 2 that tunnel to each other that is cl katerina. B. Stage IV over the left greater trochanter of the hip. C. Sacral decubitus stage II. D. The wounds are clean and stable as of 11/19/2016. 7. Hypertension. 8. Dysphagia. A. Failed swallow evaluation as of 11/11/2016. B. Enteral feeding initiated on 11/12/2016 through the PEG tube and on 11/12/2016. G-tube feedings are going well using Jevity 1.5, 8 ounces every 8 hours. 1. Enteral feedings going without problems as of 11/19/2016. 9. Status post percutaneous endoscopic gastrostomy tube placement in 09/2014. 10. Hypothyroidism. 11. Gastroesophageal reflux disease. 12. Coronary heart disease, stable. 13. Anxiety. 14. Do not resuscitate. 15. Mouth pain. A. Secondary to the cancer of the tongue, recent dehydration, probable history of recurrence B. The mouth and tongue have improved as of 11/19/2016. PLAN: Will leave patient on her IV antibiotics another day which will be a 10 day course that she h as completed for the pneumonia. Will try to gradually pullback on the IV fluids and try to sustain her maintenance with her G-tube. Still awaiting approval from her insurance for movement into [facility] for continuation of wound care, enteral feeding and comfort measures.
[2016-11-19] MEDS ORDERED: Dextrose 5 % And 0.9 % NaCl 1000 ml Bag ONE (12:48)
[2016-11-19] MEDS ORDERED: KCL ONE (12:48)
[2016-11-19] MEDS ORDERED: Sodium Chloride Irrig Solution 250 ML BOT ONE (12:48)
[2016-11-19] MEDS ORDERED: Sodium Chloride 0.9% 1,000 ML BAG ONE (12:48)
[2016-11-19] MEDS ORDERED: D5 NS W ONE (12:48)
== END 2016-11-19 15:59 | disposition swing bed (61) | DRG 193 ==
LOC: MADERS 16:04 → MADMS 19:59
PROVIDERS: ADMIT Family Medicine; ATTEND Family Medicine
DX: J18.9 Pneumonia, unspecified organism (principal); L89.214 Pressure ulcer of right hip, stage 4; R64 Cachexia; B37.0 Candidal stomatitis; L89.224 Pressure ulcer of left hip, stage 4; L89.152 Pressure ulcer of sacral region, stage 2; E86.0 Dehydration; R13.10 Dysphagia, unspecified; Z93.1 Gastrostomy status; F03.90 Unspecified dementia, unspecified severity, without behavioral disturbance, psychotic disturbance, mood disturbance, and anxiety; Z68.1 Body mass index [BMI] 19.9 or less, adult; C02.9 Malignant neoplasm of tongue, unspecified; R53.1 Weakness; I10 Essential (primary) hypertension; E03.9 Hypothyroidism, unspecified; K21.9 Gastro-esophageal reflux disease without esophagitis; I25.10 Atherosclerotic heart disease of native coronary artery without angina pectoris; F41.9 Anxiety disorder, unspecified; Z66 Do not resuscitate
CPT/HCPCS: 36415; 51702; 71010; 80048; 80053; 81001; 82550; 82553; 83605; 83880; 84484; 85007; 85025; 85027; 85610; 85730; 86140; 87040; 87070; 87077; 87086; 87186; 87205; 93005; 94760; 96361; 96374; 96375; A4216; C9113; G8996-GN-CN; G8997-GN-CN; G8998-GN-CN; J0456; J0696; J1450; J1885; J2060; J2270; J2405; J7042; J7050

== ENCOUNTER 2016-11-19 14:00 | Inpatient (IN) | payer MEDICARE ==
[2016-11-19] MEDS ORDERED: Bisacodyl 10 MG SUPP PR PRN (15:38)
[2016-11-19] MEDS ORDERED: Acetaminophen 650 MG Suppository PR PRN (15:38)
[2016-11-19] MEDS ORDERED: Morphine Sulfate 2 MG/ML SYRINGE SLOW IVP PRN (15:38)
[2016-11-19] MEDS ORDERED: Ondansetron HCl/PF 4 MG/2 ML Vial SLOW IVP PRN (15:38)
[2016-11-19] MEDS ORDERED: NACL IV SCH (15:45)
[2016-11-19] MEDS ORDERED: DEXTROSE IV SCH (15:45)
[2016-11-19] MEDS ORDERED: Morphine Sulfate 10 mg/0.5 ml Oral Syringe SL PRN (15:45)
[2016-11-19 16:21] VITALS: BMI 11.9
[2016-11-19] MEDS: Nystatin 500,000 UNITS/5 ML UDCUP FS SCH (20:50)
[2016-11-19] MEDS: Dextrose 5 % And 0.9 % NaCl 1,000 ML IV SCH (20:50)
[2016-11-19] MEDS: Lidocaine Viscous Sol 2% 15 ml UD Cup FS SCH (20:50)
[2016-11-19] MEDS: Scopolamine 1.5 mg/72 hour Patch TOP SCH (20:51)
[2016-11-20] MEDS: Lorazepam 2 MG/ML VIAL SLOW IVP PRN ×3 (04:39→17:19)
[2016-11-20] MEDS ORDERED: Sodium Chloride 0.9% 40 ML ONE (07:26)
[2016-11-20] MEDS: cefTRIAXone\\ROCEPHIN 1 GM in Sodium Chloride 0.9% 100 ML IVPB SCH (07:42)
[2016-11-20] MEDS: ADMIXTURE FEE IVPB SCH ×2 (08:58)
[2016-11-20] MEDS: NACL ISO OSM IVPB SCH ×2 (08:58)
[2016-11-20] MEDS: FLUCONAZOLE IVPB SCH ×2 (08:58)
[2016-11-20] MEDS ORDERED: cefTRIAXone\\ROCEPHIN 1 GM VIAL IVPB SCH (09:00)
[2016-11-20] MEDS: Lidocaine Viscous Sol 2% 15 ml UD Cup FS SCH ×4 (09:00→21:10)
[2016-11-20] MEDS ORDERED: Fluconazole In NaCl,Iso-Osm 200 mg/100 ml Premix Bag IVPB SCH (09:00)
[2016-11-20] MEDS: Nystatin 500,000 UNITS/5 ML UDCUP FS SCH ×4 (09:00→21:11)
[2016-11-20] MEDS: Dextrose 5 % And 0.9 % NaCl 1,000 ML IV SCH ×2 (16:55→21:11)
[2016-11-21] MEDS: Lorazepam 2 MG/ML VIAL SLOW IVP PRN ×2 (03:48→16:36)
[2016-11-21] MEDS: Lidocaine Viscous Sol 2% 15 ml UD Cup FS SCH ×4 (08:30→20:06)
[2016-11-21] MEDS: FLUCONAZOLE IVPB SCH ×2 (08:30)
[2016-11-21] MEDS: Nystatin 500,000 UNITS/5 ML UDCUP FS SCH ×4 (08:30→20:06)
[2016-11-21] MEDS: ADMIXTURE FEE IVPB SCH ×2 (08:30)
[2016-11-21] MEDS: NACL ISO OSM IVPB SCH ×2 (08:30)
[2016-11-21] MEDS: cefTRIAXone\\ROCEPHIN 1 GM in Sodium Chloride 0.9% 100 ML IVPB SCH (08:30)
[2016-11-21] MEDS: Dextrose 5 % And 0.9 % NaCl 1,000 ML IV SCH ×2 (12:04→20:08)
--- NOTE | 2016-11-21 14:30 | PRG ---
DATE OF SERVICE: 11/21/2016 SUBJECTIVE: Nurses report no change in patient's condition. She is not able to take any oral fluid s or food. She is still receiving lorazepam as needed, last received dose early this morning. She is still getting the morphine IV periodically, last received early this morning. OBJECTIVE: GENERAL: The patient is lying in bed. She is awake. HEENT: She has coarse rales and gurgling in her mouth and throat from the upper airway and oral sec retions that requiring periodic suctioning. LUNGS: Her lungs have coarse rales at to be heard throughout the chest, coming from the upper airwa y. HEART: Regular rate. WOUNDS: Unchanged. ASSESSMENT: 1. Bibasilar pneumonia. A. Remains on ceftriaxone as of 11/21/2016. B. Lungs are much worse, but much of this is probably coming from upper airway secretions that places her risk for further aspiration as of 11/21/2016. 2. Dehydration. A. Presenting with minimal responsiveness that has resolved as of 11/19/2016. B. Resolved as of 11/14/2016. 3. Cancer of the tongue. A. Status post radiation therapy in 2013. B. Recurrence in 2015 evaluation, at [facility], which she did not pursue any further treatmen t. C. Under hospice care prior to admission. 4. Severe generalized weakness. A. Requires total care as of 11/21/2016. 5. Cachexia. A. With marked weight loss and weakness. B. Unchanged as of 11/21/2016. 6. Decubiti. A. Stage III to IV decubiti over the right hip numbering 2 that tunnel to each other that is cl katreina. B. Stage IV over the left greater trochanter of the hip. C. Sacral decubitus stage II. D. The wounds are clean and stable as of 11/21/2016. 7. Hypertension. 8. Dysphagia. A. Failed swallow evaluation as of 11/11/2016. B. Enteral feeding initiated on 11/12/2016 through the PEG tube and on 11/21/2016. G-tube feedings are going well using Jevity 1.5, 8 ounces every 8 hours. 1. Enteral feedings going without problems as of 11/19/2016. 9. Status post percutaneous endoscopic gastrostomy tube placement in 09/2014. 10. Hypothyroidism. 11. Gastroesophageal reflux disease. 12. Coronary heart disease, stable. 13. Anxiety. 14. Do not resuscitate. 15. Mouth pain. A. Secondary to the cancer of the tongue, recent dehydration, probable history of recurrence B. With a history of the cancer of the tongue, her chronic dryness and ulcerations persists as of 11/21/2016. PLAN: Patient is having problems with upper airway secretions. She is on the scopolamine patch and using the atropine as needed, try to help control these additionally. She is requiring intermitten t suctioning. The patient is still receiving the mixture of Mycostatin and lidocaine just to be melida nted on the mouth for comfort and control of any . She is still on the IV antibiotics. She s ounds much worse, but I think this is all coming from the upper airway secretions that she cannot co ntrol, but also puts her risk for aspiration. Her overall condition is one of gradual deterioration . We will continue her comfort care, on the mouth using the IV lorazepam and the IV morphine as nee ded. We will continue present wound care, her prognosis remains very, very poor. Primary care will be her comfort. We will discontinue the Diflucan, will cut IV fluids back to 25 per hour.
[2016-11-21] MEDS: Morphine Sulfate 10 mg/0.5 ml Oral Syringe SL PRN (22:14)
[2016-11-22] MEDS: Morphine Sulfate 10 mg/0.5 ml Oral Syringe SL PRN ×5 (01:50→15:50)
[2016-11-22] MEDS: cefTRIAXone\\ROCEPHIN 1 GM in Sodium Chloride 0.9% 100 ML IVPB SCH (09:11)
[2016-11-22] MEDS: Lidocaine Viscous Sol 2% 15 ml UD Cup FS SCH ×4 (09:15→20:30)
[2016-11-22] MEDS: Nystatin 500,000 UNITS/5 ML UDCUP FS SCH ×4 (09:15→20:31)
--- NOTE | 2016-11-22 12:01 | PRG ---
DATE OF SERVICE: 11/22/2016. SUBJECTIVE: Nurses said the patient had a better night. She is still receiving the morphine interm ittently and some the nurses feel like sublingual works a little better than the IV. She is also re ceiving the lorazepam occasionally. OBJECTIVE: GENERAL: The patient is lying in bed with the head elevated this morning. She is alert and talking can understand somewhat she says and she is not as congested as she was yesterday, does not have an upper airway secretions that she did yesterday. VITAL SIGNS: Shows a temperature of 98.3, pulse 73, respirations 19, O2 saturation 98% on 2 liters, blood pressure 153/65. HEENT: Her mouth, tongue is dry and has a little dried blood and some superficial ulcerations and f etid odor. LUNGS: Clear. She does not have the upper airway noise said she did yesterday. HEART: Regular rate. ASSESSMENT: 1. Bibasilar pneumonia. A. The patient has completed a 10-day course of intravenous ceftriaxone as of 11/22/2016. B. Lungs are much better and sound clear. The upper airway secretions are improved as of 11/22. 2. Dehydration. A. Presenting with minimal responsiveness that has resolved as of 11/19/2016. B. Resolved as of 11/14/2016. 3. Cancer of the tongue. A. Status post radiation therapy in 2013. B. Recurrence in 2015 evaluation, at [facility], which she did not pursue any further treatmen t. C. Under hospice care prior to admission. 4. Severe generalized weakness. A. Requires total care as of 11/21/2016. 5. Cachexia. A. With marked weight loss and weakness. B. Unchanged as of 11/22/2016. 6. Decubiti. A. Stage III to IV decubiti over the right hip numbering 2 that tunnel to each other that is cl katerina. B. Stage IV over the left greater trochanter of the hip. C. Sacral decubitus stage II. D. The wounds are clean and stable as of 11/22/2016. 7. Hypertension. 8. Dysphagia. A. Failed swallow evaluation as of 11/11/2016. B. Enteral feeding initiated on 11/12/2016 through the PEG tube and on 11/21/2016. G-tube feedings are going well using Jevity 1.5, 8 ounces every 8 hours. 1. Enteral feedings going without problems as of 11/22/2016. 9. Status post percutaneous endoscopic gastrostomy tube placement in 09/2014. 10. Hypothyroidism. 11. Gastroesophageal reflux disease. 12. Coronary heart disease, stable. 13. Anxiety. 14. Do not resuscitate. 15. Mouth pain. A. Secondary to the cancer of the tongue, recent dehydration, probable history of recurrence B. With a history of the cancer of the tongue, her chronic dryness and ulcerations persists as of 11/21/2016. PLAN: We will stop the IV Rocephin, continue morphine and lorazepam as needed. Continue present wo und care. The patient's condition looks stable, but her prognosis remains extremely poor. We will continue her comfort measures.
[2016-11-22] MEDS: Atropine Sulfate 1% Ophth Soln 5 ml Bottle PO PRN (13:07)
[2016-11-22] MEDS: Scopolamine 1.5 mg/72 hour Patch TOP SCH (20:32)
[2016-11-23] MEDS: Morphine Sulfate 10 mg/0.5 ml Oral Syringe SL PRN ×7 (00:12→19:33)
[2016-11-23] MEDS: Nystatin 500,000 UNITS/5 ML UDCUP FS SCH ×4 (09:08→22:31)
[2016-11-23] MEDS: Lidocaine Viscous Sol 2% 15 ml UD Cup FS SCH ×4 (09:08→22:31)
[2016-11-23] MEDS: Dextrose 5 % And 0.9 % NaCl 1,000 ML IV SCH (09:11)
[2016-11-24] MEDS: Lorazepam 2 MG/ML VIAL SLOW IVP PRN ×3 (03:52→20:29)
[2016-11-24] MEDS: Nystatin 500,000 UNITS/5 ML UDCUP FS SCH ×4 (08:20→20:26)
[2016-11-24] MEDS: Lidocaine Viscous Sol 2% 15 ml UD Cup FS SCH ×4 (08:20→20:26)
[2016-11-24] MEDS: Dextrose 5 % And 0.9 % NaCl 1,000 ML IV SCH (11:12)
--- NOTE | 2016-11-24 18:02 | PRG ---
DATE OF SERVICE: 11/24/2016 SUBJECTIVE: Nurses report no change. The patient is awake this morning and trying to talk, can und erstand a little what she says. OBJECTIVE: The patient is alert, talkative, but difficult to understand. She appears very comforta ble. Her vital signs show a temperature of 97, pulse 72, respirations 18, O2 saturation 98%. Blood pressure has been 139/65. Lungs are clear. Heart, regular rate. Mouth looks a little better, is more moist. Her wounds are unchanged. The patient is still requiring periodic doses of morphine IV . ASSESSMENT: 1. Bibasilar pneumonia. A. The patient has completed a 10-day course of intravenous ceftriaxone as of 11/22/2016. B. Lungs are much better and sound clear. The upper airway secretions are improved as of 11/22. C. Clinically resolved as of 11/24/2016. 2. Dehydration. A. Presenting with minimal responsiveness that has resolved as of 11/19/2016. B. Resolved as of 11/14/2016. 3. Cancer of the tongue. A. Status post radiation therapy in 2013. B. Recurrence in 2015 evaluation, at [facility], which she did not pursue any further treatmen t. C. Under hospice care prior to admission. 4. Severe generalized weakness. A. Requires total care as of 11/24/2016. 5. Cachexia. A. With marked weight loss and weakness. B. Unchanged as of 11/24/2016. 6. Decubiti. A. Stage III to IV decubiti over the right hip numbering 2 that tunnel to each other that is cl katerina. B. Stage IV over the left greater trochanter of the hip. C. Sacral decubitus stage II. D. The wounds are clean and stable as of 11/24/2016. 7. Hypertension. 8. Dysphagia. A. Failed swallow evaluation as of 11/11/2016. B. Enteral feeding initiated on 11/12/2016 through the PEG tube and on 11/21/2016. G-tube feedings are going well using Jevity 1.5, 8 ounces every 8 hours. 1. Enteral feedings going without problems as of 11/24/2016. 9. Status post percutaneous endoscopic gastrostomy tube placement in 09/2014. 10. Hypothyroidism. 11. Gastroesophageal reflux disease. 12. Coronary heart disease, stable. 13. Anxiety. 14. Do not resuscitate. 15. Mouth pain. A. Secondary to cancer of the tongue with recurrence, recent dehydration. B. Improved and symptoms better controlled as of 11/24/2016. PLAN: Continue comfort measures. Continue present wound care. Prognosis remains extremely poor.
[2016-11-25] MEDS: Dextrose 5 % And 0.9 % NaCl 1,000 ML IV SCH (01:05)
[2016-11-25] MEDS: Lorazepam 2 MG/ML VIAL SLOW IVP PRN ×2 (03:21→11:06)
[2016-11-25] MEDS: Nystatin 500,000 UNITS/5 ML UDCUP FS SCH ×4 (09:18→20:57)
[2016-11-25] MEDS: Lidocaine Viscous Sol 2% 15 ml UD Cup FS SCH ×4 (09:18→20:57)
[2016-11-25] MEDS: Scopolamine 1.5 mg/72 hour Patch TOP SCH (20:57)
--- NOTE | 2016-11-26 08:50 | PRG ---
DATE OF SERVICE: 11/26/2016 SUBJECTIVE: Nurses report no change in the patient. OBJECTIVE: The patient is lying in bed with the head elevated. She is awake, trying to talk. She talks in just a whisper and cannot understand what she says. She looks comfortable and does not raghav ear in any acute distress. Her temperature is 98.7, pulse 90, respirations 22, O2 sat 94% on 2 lite rs, blood pressure 141/71. Her mouth; tongue is a little dry. Still has a bad odor from the mouth . The mouth overall is a little better, but there are still some areas of crusting and little super ficial ulcerations. Her lungs are clear. Heart, regular rate. Wounds unchanged. ASSESSMENT: 1. Bibasilar pneumonia. A. The patient has completed a 10-day course of intravenous ceftriaxone as of 11/22/2016. B. Lungs are much better and sound clear. The upper airway secretions are improved as of 11/22. C. Clinically resolved as of 11/24/2016. Lungs remained clear has of 11/26/2016. 2. Dehydration. A. Presenting with minimal responsiveness that has resolved as of 11/19/2016. B. Resolved as of 11/14/2016. 3. Cancer of the tongue. A. Status post radiation therapy in 2013. B. Recurrence in 2015 evaluation, at [facility], which she did not pursue any further treatmen t. C. Under hospice care prior to admission. 4. Severe generalized weakness. A. Requires total care as of 11/24/2016. B. Unchanged as of 11/26/2015. 5. Cachexia. A. With marked weight loss and weakness. B. Unchanged as of 11/26/2016. 6. Decubiti. A. Stage III to IV decubiti over the right hip numbering 2 that tunnel to each other that is cl katerina. B. Stage IV over the left greater trochanter of the hip. C. Sacral decubitus stage II. D. The wounds are clean and stable as of 11/26/2016. 7. Hypertension. 8. Dysphagia. A. Failed swallow evaluation as of 11/11/2016. B. Enteral feeding initiated on 11/12/2016 through the PEG tube and on 11/21/2016. G-tube feedings are going well using Jevity 1.5, 8 ounces every 8 hours. 1. Enteral feedings going without problems as of 11/26/2016. 9. Status post percutaneous endoscopic gastrostomy tube placement in 09/2014. 10. Hypothyroidism. 11. Gastroesophageal reflux disease. 12. Coronary heart disease, stable. 13. Anxiety. 14. Do not resuscitate. 15. Mouth pain. A. Secondary to cancer of the tongue with recurrence, recent dehydration. B. Improved and symptoms better controlled as of 11/26/2016. PLAN: The patient's condition is stable. Her pain seems to be controlled. We will continue presen t care and comfort measures.
[2016-11-26] MEDS: Nystatin 500,000 UNITS/5 ML UDCUP FS SCH ×4 (09:10→20:57)
[2016-11-26] MEDS: Lidocaine Viscous Sol 2% 15 ml UD Cup FS SCH ×4 (09:10→20:56)
[2016-11-26] MEDS: Dextrose 5 % And 0.9 % NaCl 1,000 ML IV SCH (14:20)
[2016-11-26] MEDS: Atropine Sulfate 1% Ophth Soln 5 ml Bottle PO PRN (23:07)
[2016-11-27] MEDS: Nystatin 500,000 UNITS/5 ML UDCUP FS SCH ×4 (08:57→21:38)
[2016-11-27] MEDS: Lidocaine Viscous Sol 2% 15 ml UD Cup FS SCH ×4 (08:59→21:38)
[2016-11-27] MEDS: Lorazepam 2 MG/ML VIAL SLOW IVP PRN ×2 (12:25→21:37)
[2016-11-27] MEDS: Morphine Sulfate 10 mg/0.5 ml Oral Syringe SL PRN ×2 (12:27→20:19)
[2016-11-27] MEDS: Dextrose 5 % And 0.9 % NaCl 1,000 ML IV SCH (14:20)
[2016-11-28] MEDS: Morphine Sulfate 10 mg/0.5 ml Oral Syringe SL PRN ×4 (01:21→21:35)
[2016-11-28] MEDS: Dextrose 5 % And 0.9 % NaCl 1,000 ML IV SCH ×2 (06:03→17:23)
[2016-11-28] MEDS: Lorazepam 1 MG TAB PER TUBE PRN ×3 (08:51→21:33)
--- NOTE | 2016-11-28 08:51 | PRG ---
DATE OF SERVICE: 11/28/2016 SUBJECTIVE: Nurses said the patient is still requiring the morphine pretty regularly for her comfor t. They have found that the Roxanol given sublingual seems to last a little longer than the IV morp esperanza. She does have trouble even with a very small sublingual dosage of the morphine and tends to g et choked and will cough. The nurses have been instructed to try giving this sublingual along with the lidocaine if needed. She did lose her IV and it was able be restarted, but at some point may no t be able to restore the IV and this will give us an alternative way to manage her comfort with the sublingual morphine and Valium that could also be used per G-tube. OBJECTIVE: The patient is lying in bed on her right side asleep, but when spoke to her, she opened her eyes. She did not attempt to talk, but she does not like to be moved. Her lips have some scabs on them and the tongue has some scabs and a little dried blood. Tongue looks dry in spite of the o ral care. Her lungs are clear. The wounds nurses report are all clean. ASSESSMENT: 1. Bibasilar pneumonia. A. The patient has completed a 10-day course of intravenous ceftriaxone as of 11/22/2016. B. Lungs are much better and sound clear. The upper airway secretions are improved as of 11/22. C. Clinically resolved as of 11/24/2016. Lungs remained clear has of 11/26/2016. 2. Dehydration. A. Presenting with minimal responsiveness that has resolved as of 11/19/2016. B. Resolved as of 11/14/2016. 3. Cancer of the tongue. A. Status post radiation therapy in 2013. B. Recurrence in 2015 evaluation, at [facility], which she did not pursue any further treatmen t. C. Under hospice care prior to admission. D. Overall condition has been one of gradual decline. 4. Severe generalized weakness. A. Requires total care as of 11/24/2016. B. Unchanged as of 11/28/2015. 5. Cachexia. A. With marked weight loss and weakness. B. Unchanged as of 11/28/2016. 6. Decubiti. A. Stage III to IV decubiti over the right hip numbering 2 that tunnel to each other that is cl katerina. B. Stage IV over the left greater trochanter of the hip. C. Sacral decubitus stage II. D. The wounds are clean and stable as of 11/28/2016. 7. Hypertension. 8. Dysphagia. A. Failed swallow evaluation as of 11/11/2016. B. Enteral feeding initiated on 11/12/2016 through the PEG tube and on 11/21/2016. G-tube feedings are going well using Jevity 1.5, 8 ounces every 8 hours. 1. Enteral feedings going without problems as of 11/28/2016. 9. Status post percutaneous endoscopic gastrostomy tube placement in 09/2014. 10. Hypothyroidism. 11. Gastroesophageal reflux disease. 12. Coronary heart disease, stable. 13. Anxiety. 14. Do not resuscitate. 15. Mouth pain. A. Secondary to cancer of the tongue with recurrence, recent dehydration. B. Persists with dryness and ulceration in the mouth as of 11/28/2016. PLAN: The patient's condition is one of gradual deterioration. She is still requiring frequent mor phine and Ativan for pain and restlessness. Will use morphine and Ativan sublingual or per G-tube a nd see how this works. This will give us a good alternative in the event she loses the IV. We will continue the present care to the ulcerations and continue comfort measures. Her condition will be one of continual deterioration. At this point, there is no way the family could manage her at home and feel at this juncture that her level of care exceeds what the retirement could provide and saf pancho manage her correctly and appropriately manage her comfort. We will also increase the patient's fentanyl patch from a 25 microgram per hour to 50 mcg per hour, apply every 72 hours.
[2016-11-28] MEDS: Lidocaine Viscous Sol 2% 15 ml UD Cup FS SCH ×4 (08:52→20:55)
[2016-11-28] MEDS: Nystatin 500,000 UNITS/5 ML UDCUP FS SCH ×4 (08:53→20:55)
[2016-11-28] MEDS: Atropine Sulfate 1% Ophth Soln 5 ml Bottle PO PRN (12:34)
[2016-11-28] MEDS: Scopolamine 1.5 mg/72 hour Patch TOP SCH (20:53)
[2016-11-29] MEDS: Lidocaine Viscous Sol 2% 15 ml UD Cup FS SCH ×4 (08:57→20:53)
[2016-11-29] MEDS: Nystatin 500,000 UNITS/5 ML UDCUP FS SCH ×4 (08:57→20:54)
[2016-11-29] MEDS: Morphine Sulfate 10 mg/0.5 ml Oral Syringe SL PRN ×4 (10:33→22:57)
[2016-11-29] MEDS: Lorazepam 1 MG TAB PER TUBE PRN ×2 (10:34→21:54)
--- NOTE | 2016-11-29 19:01 | PRG ---
DATE OF SERVICE: 11/29/2016 SUBJECTIVE: Patient's IV had infiltrated yesterday and the patient refused to have this restarted. She has been receiving the morphine concentrate per G-tube and the Ativan per G-tube as needed, thi s seems to be working. The patient has had a lot of upper airway secretions and is requiring freque nt suctioning in spite of the use of the scopolamine patches and the atropine drops; nurse said that patient awakens with upper airway congestion and gets anxious. She has settled down right now, whe re she is sleeping. OBJECTIVE: GENERAL: Patient is lying in bed, asleep. She appears comfortable. VITAL SIGNS: Her vital signs showed temperature 98.5, pulse 86, respirations 19, O2 sat 97% on 2 liters. HEENT: Evelia roman's mouth is dry. LUNGS: Her lungs have upper airway noises. HEART: Her heart has regular rat e. We did not try to awaken patient since, she is comfortable. ASSESSMENT: 1. Bibasilar pneumonia. A. The patient has completed a 10-day course of intravenous ceftriaxone as of 11/22/2016. B. Lungs are much better and sound clear. The upper airway secretions are improved as of 11/22. C. Clinically resolved as of 11/24/2016. Lungs remained clear has of 11/26/2016. 2. Dehydration. A. Presenting with minimal responsiveness that has resolved as of 11/19/2016. B. Resolved as of 11/14/2016. 3. Cancer of the tongue. A. Status post radiation therapy in 2013. B. Recurrence in 2015 evaluation, at [facility], which she did not pursue any further treatmen t. C. Under hospice care prior to admission. D. Continued decline as of 11/29/2016. 4. Severe generalized weakness. A. Requires total care as of 11/29/2016. 5. Cachexia. A. With marked weight loss and weakness. B. Unchanged as of 11/29/2016. 6. Decubiti. A. Stage III to IV decubiti over the right hip numbering 2 that tunnel to each other that is cl katerina. B. Stage IV over the left greater trochanter of the hip. C. Sacral decubitus stage II. D. The wounds are clean and stable as of 11/29/2016. 7. Hypertension. 8. Dysphagia. A. Failed swallow evaluation as of 11/11/2016. B. Enteral feeding initiated on 11/12/2016 through the PEG tube and on 11/21/2016. G-tube feedings are going well using Jevity 1.5, 8 ounces every 8 hours. 1. Enteral feedings going without problems as of 11/29/2016. 9. Status post percutaneous endoscopic gastrostomy tube placement in 09/2014. 10. Hypothyroidism. 11. Gastroesophageal reflux disease. 12. Coronary heart disease, stable. 13. Anxiety. 14. Do not resuscitate. 15. Mouth pain. A. Secondary to cancer of the tongue with recurrence, recent dehydration. B. Persists with dryness and ulceration in the mouth as of 11/29/2016. PLAN: Patient's condition continues to decline. Her IV has come out and she did not want this rest arted. She is still receiving nutrition and fluids through the NG tube. She is requiring increased suctioning, increased frequency of pain medication; right now she is comfortable, had increased her fentanyl patch to 50 mcg per hour, try to help with the frequency of the breakthrough pain. Had an opportunity to visit with her sister, Maliha and she knows that Deana's condition is deteriorating an d knows that there is no way the family can manage her at home and that her level of care is best se rved right where she is. We will continue comfort palliative measures as she remains DNR.
[2016-11-30] MEDS: Morphine Sulfate 10 mg/0.5 ml Oral Syringe SL PRN ×3 (04:33→22:26)
[2016-11-30] MEDS: Lorazepam 1 MG TAB PER TUBE PRN ×3 (05:31→23:24)
[2016-11-30] MEDS: Atropine Sulfate 1% Ophth Soln 5 ml Bottle PO PRN ×2 (06:06→22:26)
[2016-11-30] MEDS: Nystatin 500,000 UNITS/5 ML UDCUP FS SCH ×4 (09:09→21:19)
[2016-11-30] MEDS: Lidocaine Viscous Sol 2% 15 ml UD Cup FS SCH ×4 (09:09→21:18)
[2016-11-30] MEDS: fentaNYL 50 mcg/hour Patch TD SCH (09:11)
[2016-12-01] MEDS: Morphine Sulfate 10 mg/0.5 ml Oral Syringe SL PRN ×3 (07:31→11:17)
[2016-12-01] MEDS: Lorazepam 1 MG TAB PER TUBE PRN (08:02)
[2016-12-01] MEDS: Atropine Sulfate 1% Ophth Soln 5 ml Bottle PO PRN (08:03)
--- NOTE | 2016-12-01 08:48 | PRG ---
DATE OF SERVICE: 12/01/2016 SUBJECTIVE: The patient has been a little more restless, has had to have morphine and Ativan freque ntly, her Duragesic patch was just increased to 50 mcg yesterday. The patient is not able to take t he morphine sublingual, she chokes on this, but it has been given through the G-tube. She had 3 francia d stools she passed this morning. OBJECTIVE: The patient is moaning, appears a little restless and her face looks like she is uncomfo rtable. Her vital signs show a temperature of 98.2, blood pressure 104/46, O2 sat 94% on 2 liters, pulse 85, respirations 17. Vital signs were infrequent and often she refuses to have this done. Th e patient looks a little restless. Her mouth is dry and is brown and some blood coating on the tong ue. Her cheeks are flushed. Her lungs are clear anteriorly. Heart; regular rate. ASSESSMENT: The patient's condition is one of gradual deterioration, she is very restless this morn ing. PLAN: We will continue the morphine and lorazepam as needed. I will place the patient on risperido ne 0.25 mg per G-tube b.i.d. to help with the restlessness. Continue comfort measures. The patient continues to gradually deteriorate. We will add MiraLax to try to help with the constipation.
[2016-12-01] MEDS: Lidocaine Viscous Sol 2% 15 ml UD Cup FS SCH ×4 (08:52→20:51)
[2016-12-01] MEDS: risperiDONE 0.5 MG TAB PER TUBE SCH ×2 (08:53→20:52)
[2016-12-01] MEDS: Nystatin 500,000 UNITS/5 ML UDCUP FS SCH ×4 (08:53→20:50)
[2016-12-01] MEDS: Polyethylene Glycol 3350 17 GM Packet PER TUBE SCH (09:07)
[2016-12-01] MEDS ORDERED: Dextrose 5 % And 0.9 % NaCl 1000 ml Bag ONE (13:47)
[2016-12-01] MEDS: Scopolamine 1.5 mg/72 hour Patch TOP SCH (20:51)
[2016-12-02] MEDS: Lorazepam 1 MG TAB PER TUBE PRN (05:55)
[2016-12-02] MEDS: risperiDONE 0.5 MG TAB PER TUBE SCH ×2 (08:50→20:40)
[2016-12-02] MEDS: Polyethylene Glycol 3350 17 GM Packet PER TUBE SCH (08:50)
[2016-12-02] MEDS: Lidocaine Viscous Sol 2% 15 ml UD Cup FS SCH ×4 (08:50→20:40)
[2016-12-02] MEDS: Nystatin 500,000 UNITS/5 ML UDCUP FS SCH ×4 (08:50→20:40)
[2016-12-02] MEDS: Atropine Sulfate 1% Ophth Soln 5 ml Bottle PO PRN (08:51)
[2016-12-02] MEDS: Morphine Sulfate 10 mg/0.5 ml Oral Syringe SL PRN (08:52)
--- NOTE | 2016-12-02 16:56 | PRG ---
DATE OF SERVICE: 12/02/2016 SUBJECTIVE: Earlier this morning, the patient was restless and uncomfortable and was given a dose o f morphine. Around 11:30 this morning, the patient was unresponsive with respiratory rate up to 38. Very pale and cool and O2 sat was down in around 75%. She was unresponsive. Her mouth had some f ormula present. The G-tube bolus feedings with Jevity had been stopped. She was placed on 100% non rebreathing mask. PHYSICAL EXAMINATION: VITAL SIGNS: Now patient is lying in bed with the head elevated with nonrebreathing mask on, O2 sat is now up to 96%. She has a good strong pulse, blood pressure was not taken. LUNGS: Her lungs have some expiratory coarse rhonchi. HEART: Regular rate. NEUROLOGIC: The patient is unresponsive. ASSESSMENT: The patient's condition has continued to deteriorate. She has severe hypoxic episode a nd then possibly has aspirated. The patient presently appears comfortable. Her sister Frances and other family member are with her and we will continue comfort measures only, has stopped G-tube feed ing. We will continue the morphine and lorazepam as needed. I visited with the family let them roby salazar that patient may be probably in a rapid decline and is actively dying.
[2016-12-03] MEDS: risperiDONE 0.5 MG TAB PER TUBE SCH ×2 (07:29→20:48)
[2016-12-03] MEDS: Morphine Sulfate 10 mg/0.5 ml Oral Syringe SL PRN ×2 (07:31→12:30)
[2016-12-03] MEDS: Polyethylene Glycol 3350 17 GM Packet PER TUBE SCH (07:32)
[2016-12-03] MEDS: fentaNYL 50 mcg/hour Patch TD SCH (08:04)
[2016-12-03] MEDS: Nystatin 500,000 UNITS/5 ML UDCUP FS SCH ×4 (08:05→20:47)
[2016-12-03] MEDS: Lidocaine Viscous Sol 2% 15 ml UD Cup FS SCH ×4 (08:05→20:48)
--- NOTE | 2016-12-03 08:22 | PRG ---
DATE OF SERVICE: 12/03/2016 SUBJECTIVE: During the night, the patient became more alert. She still periodically has required t he morphine that has been given per her G-tube since she lost her IV site and did not want an IV res tarted. She has just been medicated with morphine this morning. Presently she is lying in bed. Sh e will respond a little to verbal stimuli. Her O2 sat on 100% nonrebreathing mask is 96%. Her puls e was 103. Her lungs have diffuse coarse rales due to the upper airway congestion. Heart had a rap id regular rhythm. ASSESSMENT: The patient continues to decline. PLAN: Continue the morphine and Ativan as needed. Continue her fentanyl patch and the risperidone for the restlessness. The G-tube feedings have been held due to her regurgitation, possible aspirat ion of the formula yesterday.
[2016-12-03 21:03] VITALS: BP 184/89
[2016-12-04] MEDS: Morphine Sulfate 10 mg/0.5 ml Oral Syringe SL PRN ×3 (01:19→21:23)
[2016-12-04] MEDS: Nystatin 500,000 UNITS/5 ML UDCUP FS SCH ×4 (09:11→21:18)
[2016-12-04] MEDS: Lidocaine Viscous Sol 2% 15 ml UD Cup FS SCH ×4 (09:11→21:18)
[2016-12-04] MEDS: risperiDONE 0.5 MG TAB PER TUBE SCH ×2 (09:11→21:19)
--- NOTE | 2016-12-04 09:17 | PRG ---
DATE OF SERVICE: 12/04/2016 The patient is still requiring periodic inject doses of the morphine and Ativan. She, with this see ms to be very comfortable, but she, other times where she seems restless and looks to be in pain wit h these episodes, the morphine does seize her. She is not able to take anything by mouth due to the severe dysphagia and she is not receiving any feedings through the G-tube due to the aspiration. O verall, she has been deteriorating and at times, she will open her eyes, but has not been communicat deepa. She still is requiring the 100% nonrebreathing mask. The patient's eyes are open. She looks a little uncomfortable. Her Mouth is dry with dried blood on the tongue. Her lungs have diffuse co urse rales present. Heart, regular rate. The patient's condition is continuing to deteriorate. Co ntinue comfort measures only.
[2016-12-04] MEDS: Polyethylene Glycol 3350 17 GM Packet PER TUBE SCH (10:49)
[2016-12-04] MEDS: Scopolamine 1.5 mg/72 hour Patch TOP SCH (21:20)
[2016-12-05] MEDS: Morphine Sulfate 10 mg/0.5 ml Oral Syringe SL PRN (06:04)
[2016-12-05] MEDS: Lidocaine Viscous Sol 2% 15 ml UD Cup FS SCH ×4 (09:14→20:31)
[2016-12-05] MEDS: Polyethylene Glycol 3350 17 GM Packet PER TUBE SCH (09:14)
[2016-12-05] MEDS: Nystatin 500,000 UNITS/5 ML UDCUP FS SCH ×4 (09:14→20:31)
[2016-12-05] MEDS: risperiDONE 0.5 MG TAB PER TUBE SCH ×2 (09:15→20:32)
--- NOTE | 2016-12-05 09:28 | PRG ---
DATE OF SERVICE: 12/05/2016 SUBJECTIVE: This morning the patient is unresponsive. She is still on 100% nonrebreathing mask. S he has expiratory rhonchi and some coarse rales on inspiration are a little less. She did not respo nd to any verbal stimuli or easy tactile stimulation. I did not attempt to wake her since she appea rs comfortable. Her condition is one of continual decline with approaching. We will continue her comfort measures.
[2016-12-05 10:44] VITALS: TEMP 93.6
[2016-12-06] MEDS: Lidocaine Viscous Sol 2% 15 ml UD Cup FS SCH ×2 (08:26→13:03)
[2016-12-06] MEDS: risperiDONE 0.5 MG TAB PER TUBE SCH (08:26)
[2016-12-06] MEDS: Nystatin 500,000 UNITS/5 ML UDCUP FS SCH ×2 (08:26→13:04)
[2016-12-06] MEDS: Polyethylene Glycol 3350 17 GM Packet PER TUBE SCH (08:26)
[2016-12-06] MEDS: fentaNYL 50 mcg/hour Patch TD SCH (08:30)
--- NOTE | 2016-12-06 11:39 | PRG ---
DATE OF SERVICE: 12/06/2016. SUBJECTIVE: The patient has been very comfortable this morning. She has not required any medicatio n, she has been asleep. Nurses said yesterday afternoon she had a large impaction that required keena e digital removal. PHYSICAL EXAMINATION: GENERAL: The patient presently is lying very quietly. VITAL SIGNS: Respirations are nonlabored and rate around 20. Her O2 saturation is 91% now on just 2 liters. HEENT:: Her mouth is a little more moist. Her tongue has a little bit of brown staining on the ton rufina, but looks better than what it has. There are no ulcerations or dried blood on the lips. LUNGS: Coarse rales and rhonchi throughout the chest. HEART: Regular rate. ASSESSMENT AND PLAN: The patient's condition continued to decline. This morning though she appears very comfortable. We will continue with comfort measures only, visit with her brother and he is th ankful for her comfort.
[2016-12-06] MEDS ORDERED: Sodium Chloride Irrig Solution 250 ML BOT ONE (12:59)
--- NOTE | 2016-12-11 10:36 | DIS ---
DATE OF ADMISSION: 11/19/2016 DATE OF EXPIRY: 12/06/2016 Initially admitted to acute care on 11/10/2016, transferred to extended care on 11/19/2016, and expi red on 12/06/2016. FINAL DIAGNOSES: 1. Bilateral pneumonia. 2. Dehydration and presenting with minimal responsiveness. 3. Cancer of the tongue. A. Status post initial radiation therapy, 2013. B. Recurrence in 2014 for which she would have opted to not pursue any other care. C. Has required enteral feeding through G-tube. D. Had been under hospice care prior to admission. 4. Severe generalized weakness. A. Requires total care. 5. Cachexia. A. Complicated with marked weight loss and weakness. 6. Decubiti. A. Stage III and IV over the left trochanteric regions of the hip bilateral. B. Stage II sacral decubitus. 7. Hypertension. 8. Severe dysphagia. A. Unable to swallow any liquids or oral nutrition. B. Requires enteral feeding. 9. Eventual palliative comfort measures. CAUSE OF : Recurrent cancer of the tongue complicated by severe dysphagia and recent pneumonia . SUMMARY: The patient was an 81-year-old white female who lives at her home with her 84-year-old isaac langford. Her sister assist patient with her ADLs. Patient has a history of cancer of the tongue that i nitially was treated with radiation therapy in 2013. This recurred and created mouth pain, severe d ysphagia requiring placement of a G-tube. The patient's disease was advanced and the patient opted for no additional therapy. She has been under hospice care. Her condition has been one of gradual decline and an increased weakness and increased pain. She did develop very large ulcerations over t he trochanteric region of both hips and over the sacrum. The patient has been under hospice care. The patient became unresponsive in the home and her level of care exceeded what the sister could giv e. The patient was brought to the emergency room for help. The patient was found to be in very poo r condition and appeared very cachectic and respiratory distress. She had bilateral pneumonia. Her mouth was very dry and had multiple ulcerations and dried blood and fetid odor. Patient had a larg e stage III and IV ulcerations of the trochanteric region of both hips and also a stage II decubitus over the sacrum. The family was asked for comfort measures and initial treatment to see if we can help her get through this. She did also have a G-tube present to the left upper quadrant of the abd omen. This was an old tube, but it was still functional and it was opted not to be changed out. Th e patient was admitted with a diagnosis of bilateral pneumonia with dehydration and cancer of the to ngue complicated by severe dysphagia and cachexia and multiple ulcerations to the trochanteric regio n of the hip and sacrum. The patient had a DNR. HOSPITAL COURSE: The patient was admitted to the hospital after discussing her care with her niece, Telma Escudero with the efforts primarily for comfort, but while here at least offer care for the pne umonia in an attempt to correct the dehydration. The patient was given IV fluids. She was placed o n IV antibiotics for the pneumonia and she was given mouth care using combination of lidocaine and M ycostatin. The wounds were cleaned with wet to dry dressings and the patient was placed on a decubi tus mattress. She had morphine as needed for pain that was given IV and also and Ativan as needed f or restlessness. The patient's condition improved. The dehydration improved, pneumonia improved. She had been started on enteral feedings with Jevity 1.5 cals per mL receiving 8 ounces every 8 hours, which provided her basal level of calories. The p atient seemed to tolerate this well. She did seem to improve a little bit, but still required morph ine for comfort. She never was able to take in any nutrition or fluids by mouth, because of the sev ere dysphagia. She was moved to extended care on 11/19/2016. Efforts to move her earlier once were delayed until approval was finally given by her insurance provider. In an extended care, she comp leted her IV antibiotics. She was continued on fluids for hydration, continued on enteral feeding a nd continued on wound care and comfort measures. The patient's condition was one of gradual decline and she lost her IV site and refused to have this restarted. Her morphine, she could not even conc entrate it. She could not take orally. She choked on this, so this was given per G-tube and seemed to work adequately. The Ativan was also given per G-tube and also seem to work. The patient had a n episode of aspiration of her formula and developed severe respiratory distress post-suction by nhung th and placed her on 100% O2. She has stabilized, but her condition continued to decline. The G-tu be feedings were stopped due to the aspiration risk and patient's wishes for no further care. Comfo rt measures were continued with positioning for comfort. The morphine and Ativan were used as neede d and general mouth care was given. On the morning of 12/06/2016, patient was unresponsive. She lo oked very comfortable. Later that day, her respirations ceased and she . No resuscitative e fforts were made per her DNR. Patient said that was a result of her recurrent cancer of the tongue and complicated by the bilateral pneumonia and the severe dysphagia.
--- NOTE | 2016-12-11 13:56 | PQF ---
MARILIA FU GROVER MD [id number] CLINICAL DOCUMENTATION CLARIFICATION FORM: POST DISCHARGE PLEASE FAX RESPONSE BACK TO [phone] Addendum to original discharge summary date: ____ Late entry note date: __ IF QUERY RECEIVED VIA FAX........ PLEASE DOCUMENT YOUR RESPONSE BELOW FAX RESPONSE BACK TO [phone] Query date: 12/11/2016 ATTN: DR LOFTON Values Commonly Used to Grade the Severity of Protein-Energy Malnutrition Measurement Normal Mild Moderate Severe Normal weight (%) 02947 8590 7585 < 77 Body mass index 1924 1818.9 1617.9 < 16 Serum albumin (g/dL) 3.55.0 3.13.4 2.43.0 < 2.4 Serum transferrin (mg/dL) 767476 097400 915645 < 150 Total lymphocyte count (per mm3) 32183610 [id number] 800 1500 < 800 Delayed hypersensitivity index 2 2 1 0 From The Merck Manual of Diagnosis and Therapy, Edition 18, edited by Claudio Dwyer. Copyright 2006 by [employer], [place]. Available at : http://www.merck.com/mmpe/[email or web address]/[email or web address]/dd408w.html. Accessed 05/26/07. The following information is documented in the medical record: BMI (<18.5 Mild, <17 Moderate, <16 Severe) Cachexia Weakness Marked weight loss PEG tube feedings and G-tube feedings Please document the diagnosis that best represents the patients condition, to the most specific degree known or suspected. ___ Cachexia ___ Malnutrition, mild ___ Nutritional Risk ___ Malnutrition, moderate ___ Malnutrition, severe, not otherwise specified ___ Other: [employer] Winform Viewer___ Condition not applicable ___ No additional documentation or clarification can be provided. Physician/Provider signature/date/time (This form is maintained as a part of the permanent medical record) 2014 [employer] [place]. All Rights Reserved [email or web address]
== END 2016-12-06 17:30 | disposition expired | DRG 193 ==
LOC: MADMS 14:00
PROVIDERS: ADMIT Family Medicine; ATTEND Family Medicine
DX: J18.9 Pneumonia, unspecified organism (principal); L89.214 Pressure ulcer of right hip, stage 4; J96.01 Acute respiratory failure with hypoxia; L89.152 Pressure ulcer of sacral region, stage 2; R64 Cachexia; E86.0 Dehydration; L89.224 Pressure ulcer of left hip, stage 4; C02.9 Malignant neoplasm of tongue, unspecified; R13.10 Dysphagia, unspecified; Z93.1 Gastrostomy status; Z68.1 Body mass index [BMI] 19.9 or less, adult; Z51.5 Encounter for palliative care; Z66 Do not resuscitate; R53.1 Weakness; I10 Essential (primary) hypertension; E03.9 Hypothyroidism, unspecified; K21.9 Gastro-esophageal reflux disease without esophagitis; I25.10 Atherosclerotic heart disease of native coronary artery without angina pectoris; F41.9 Anxiety disorder, unspecified; K56.41 Fecal impaction
CPT/HCPCS: A4216; J0696; J1450; J2060; J2270; J7042; J7050